=== PATIENT | male | born 1945 | race Caucasian/White ===

== ENCOUNTER → 2016-09-04 | Outpatient (CLI) | payer OTHER ==
[~2016-09-04] MED LIST: AMOXICOT500 MG PO; ASPIRIN CHILDRE81 MG; BACTRIM DS 8001 TA1 PO; CHANTIX1 M1 PO; CHOLESTEROL MED; CLARITIN10 MG PO; DAYPRO600 M1 PO; FLONASE 0.05% 121 EA NAS; GUAIFENESIN200 MG PO; LEVAQUIN750 M1 PO; LISINOPRIL10 MG PO; MULTI VITAMINS1 TAB PO; Meclizine25 MG PO; NORVASC5 MG PO; PRILOSEC20 MG PO; SIMVASTATIN20 MG PO; SIMVASTATIN40 MG PO; SKELAXIN800 MG PO; VIAGRA100 MG PO; VICODIN ES 7501 TAB PO
== END | disposition home or self-care (01) ==
LOC: US 01:29
DX: C92.90 Myeloid leukemia, unspecified, not having achieved remission (principal)

== ENCOUNTER → 2016-11-06 | Outpatient (CLI) | payer OTHER ==
[2016-11-06 09:47] LABS: HEMATOCRIT 41.7 % (42.0-52.0); HEMOGLOBIN 14.3 g/dl (14.0-18.0); MEAN CELL VOLUME 88.9 fl (80.0-94.0); MEAN CORPUSCULAR HGB 30.5 pg (27.0-31.0); MEAN CORPUSCULAR HGB CONC 34.3 g/dl (33.0-37.0); MEAN PLATELET VOLUME 9.2 fl (9.6-12.3); PLATELET COUNT AUTOMATED 243 10*3/uL (130-400); RED BLOOD COUNT 4.69 10*6/uL (4.50-5.90); RED CELL DISTRI WIDTH 17.4 % (0-14.5); WHITE BLOOD COUNT 9.2 10*3/uL (4.8-10.8)
[2016-11-06 10:13] LABS: LYMPHOCYTE # 7.4 10*3/uL (1.3-4.4); MONOCYTE # 0.5 10*3/uL (0.1-1.0); NEUTROPHIL # 1.4 10*3/uL (2.3-7.9); NEUTROPHILS 15 % (47-73); PLATELET SUFFICIENCY NORMAL (NORMAL); TOTAL CELLS COUNTED 100 #CELLS
== END | disposition home or self-care (01) ==
LOC: LAB 02:01
PROVIDERS: Internal Medicine Hematology & Oncology
DX: C91.Z2 Other lymphoid leukemia, in relapse (principal); D70.8 Other neutropenia

== ENCOUNTER → 2016-12-01 | Outpatient (CLI) | payer OTHER ==
[2016-12-01 08:10] LABS: HEMATOCRIT 39.4 % (42.0-52.0); HEMOGLOBIN 13.4 g/dl (14.0-18.0); MEAN CELL VOLUME 87.8 fl (80.0-94.0); MEAN CORPUSCULAR HGB 29.8 pg (27.0-31.0); MEAN PLATELET VOLUME 9.4 fl (9.6-12.3); PLATELET COUNT AUTOMATED 236 10*3/uL (130-400); RED BLOOD COUNT 4.49 10*6/uL (4.50-5.90); RED CELL DISTRI WIDTH 17.6 % (0-14.5); WHITE BLOOD COUNT 8.9 10*3/uL (4.8-10.8)
[2016-12-01 08:34] LABS: LYMPHOCYTE # 7.8 10*3/uL (1.3-4.4); MONOCYTE # 0.3 10*3/uL (0.1-1.0); NEUTROPHIL # 0.8 10*3/uL (2.3-7.9); NEUTROPHILS 9 % (47-73); PLATELET SUFFICIENCY NORMAL (NORMAL); TOTAL CELLS COUNTED 100 #CELLS
== END | disposition home or self-care (01) ==
LOC: LAB 07:36
PROVIDERS: Internal Medicine Hematology & Oncology
DX: C91.Z2 Other lymphoid leukemia, in relapse (principal); D70.8 Other neutropenia

== ENCOUNTER 2016-12-10 11:28 | Emergency (ER) | payer OTHER ==
[~2016-12-10] VITALS: Ht 177.8 cm; Wt 92.1 kg
[2016-12-10] MEDS ORDERED: PREDNISONE10 MG PO (11:48)
[2016-12-10] MEDS ORDERED: CIPROFLOXACIN500 M4 PO (11:48)
[2016-12-10] MEDS ORDERED: NATURE'S BLEND F1 MG PO (11:49)
[2016-12-10] MEDS ORDERED: METHOTREXATE S2.5 M1 PO (11:49)
[2016-12-10 12:21] LABS: HEMATOCRIT 41.2 % (42.0-52.0); HEMOGLOBIN 14.1 g/dl (14.0-18.0); MEAN CELL VOLUME 88.4 fl (80.0-94.0); MEAN CORPUSCULAR HGB 30.3 pg (27.0-31.0); MEAN CORPUSCULAR HGB CONC 34.2 g/dl (33.0-37.0); MEAN PLATELET VOLUME 9.4 fl (9.6-12.3); NUCLEATED RED BLOOD CELL 0.2 % (0.0-0.0); PLATELET COUNT AUTOMATED 206 10*3/uL (130-400); RED BLOOD COUNT 4.66 10*6/uL (4.50-5.90); RED CELL DISTRI WIDTH 17.2 % (0-14.5); WHITE BLOOD COUNT 13.5 10*3/uL (4.8-10.8)
[2016-12-10 12:47] LABS: ATYPICAL LYMPHS 1 % (0-0); LYMPHOCYTE # 12.4 10*3/uL (1.3-4.4); MONOCYTE # 0.5 10*3/uL (0.1-1.0); NEUTROPHIL # 0.5 10*3/uL (2.3-7.9); NEUTROPHILS 4 % (47-73); PLATELET SUFFICIENCY NORMAL (NORMAL); TOTAL CELLS COUNTED 100 #CELLS
[2016-12-10 14:08] LABS: BILIRUBIN 1+ (NEGATIVE); BLOOD NEGATIVE (NEGATIVE); CLARITY CLEAR (CLEAR); COLOR YELLOW (YELLOW); GLUCOSE NEGATIVE (NEGATIVE); KETONE 1+ (NEGATIVE); LEUKO ESTERASE NEGATIVE (NEGATIVE); NITRITE NEGATIVE (NEGATIVE); PH 6.5 (5.0-9.0); PROTEIN 2+ (NEGATIVE); SPECIFIC GRAVITY 1.025 (1.005-1.030)
[2016-12-10] MEDS ORDERED: TESSALON PERLE100 M1 PO (14:16)
[2016-12-10] MEDS ORDERED: LEVOFLOXACIN500 MG PO (14:16)
[2016-12-10 14:22] LABS: BACTERIA 1+; MUCOUS 3+; URINE REFLEX COMMENT YES (NO)
[2016-12-10 14:33] LABS: BUN 11 mg/dl (7-24); CARBON DIOXIDE 25 mmol/L (21-32); CHLORIDE 95 mmol/L (98-107); EST GLOM FILT AFRICAN AMERICAN > 60 ml/min; GLUCOSE 100 mg/dL (65-99); POTASSIUM 5.2 mmol/L (3.5-5.1); SODIUM 129 mmol/L (136-145)
== END 2016-12-10 14:28 | disposition home or self-care (01) ==
LOC: ED 11:28
PROVIDERS: Emergency Medicine; Family Medicine
DX: J40 Bronchitis, not specified as acute or chronic (principal); J44.9 Chronic obstructive pulmonary disease, unspecified; K21.9 Gastro-esophageal reflux disease without esophagitis; E78.5 Hyperlipidemia, unspecified; F17.210 Nicotine dependence, cigarettes, uncomplicated; Z79.899 Other long term (current) drug therapy

== ENCOUNTER 2017-01-26 00:33 | Emergency (ER) | payer OTHER ==
[~2017-01-26] VITALS: Ht 177.8 cm; Wt 90.7 kg
[~2017-01-26 00:33] MED LIST changes: +CIPROFLOXACIN500 M4 PO; +LEVOFLOXACIN500 MG PO; +METHOTREXATE S2.5 M1 PO; +NATURE'S BLEND F1 MG PO; +PREDNISONE10 MG PO; +TESSALON PERLE100 M1 PO
[2017-01-26] MEDS ORDERED: PREDNISONE10 M1 PO (00:46)
[2017-01-26] MEDS ORDERED: HYDROCODONE BIT1 T11 PO (01:16)
[2017-01-26] MEDS ORDERED: SINGULAIR10 M1 PO (18:01)
[2017-01-26] MEDS ORDERED: ZYRTEC10 MG PO (18:11)
== END 2017-01-26 02:05 | disposition home or self-care (01) ==
LOC: ED 00:33
DX: S82.101A Unspecified fracture of upper end of right tibia, initial encounter for closed fracture (principal); F17.210 Nicotine dependence, cigarettes, uncomplicated; Z79.82 Long term (current) use of aspirin; X58.XXXA Exposure to other specified factors, initial encounter; Y93.89 Activity, other specified; Y92.9 Unspecified place or not applicable; Y99.9 Unspecified external cause status

== ENCOUNTER 2017-01-26 16:45 | Inpatient (IN) | payer OTHER ==
[~2017-01-26] VITALS: Ht 180.3 cm; Wt 89.4 kg
--- NOTE | ~2017-01-26 | PR ---
[place], [place] PROGRESS NOTE NAME: ANA PARKS UNIT #: [id number] ROOM: 420 DOCTOR: CESAR HILL MD BIRTHDATE: [birth year] DOS: 01/29/2017 SUBJECTIVE: The patient had a right tibial plateau fracture after he fell on 01/26/2017 at [facility]. He has pain in the right knee and is unable to bear weight. The patient was advised [facility]. For that, the patient had to come to the hospital for at least 72 hours. He was seen by Khushi Byers and she has recommended conservative treatment at this point. PT, OT was ordered. As per her, he will do well in rehab for nondisplaced fracture of the right tibial plateau. OBJECTIVE: VITAL SIGNS: Blood pressure is 156/90, pulse is 73, respiratory rate 20, temperature 97.4. CHEST: Clear to auscultation bilaterally. HEART: S1, S2. Regular rate. No murmur, gallop or rub. ABDOMEN: Soft, nontender. EXTREMITIES: No cyanosis, clubbing or edema. The patient has a bandage on the right knee. ASSESSMENT: 1. Nondisplaced right tibial fracture. 2. CLL. 3. Chronic obstructive pulmonary disease. 4. Hyperlipidemia. 5. Gastroesophageal reflux disease. 6. Erectile dysfunction. 7. History of protein-calorie malnutrition. PLAN OF CARE: 1. We will continue all home medications. 2. The patient will be discharged to [facility] for rehab and physical therapy as soon as insurance accepts the transfer to [facility]. We will follow patient in the morning. [place], [place] PROGRESS NOTE NAME: ANA PARKS UNIT #: [id number] ROOM: 420 DOCTOR: CESAR HILL MD BIRTHDATE: [birth year] CESAR HILL MD CM:PNTRANS [id number] CESAR HILL MD 01/29/17 2325 interface
--- NOTE | ~2017-01-26 | WRIGHTHP ---
[place], [place] PATIENT HISTORY AND PHYSICAL EXAM NAME: ANA PARKS [facility] #: [id number] UNIT #: [id number] ROOM: 420 DOCTOR: STACEY TERRELL MD BIRTHDATE: [birth year] DOS: 01/27/2017 HISTORY OF PRESENT ILLNESS: The patient has been admitted to the hospital with fracture of the right knee. The patient came to Emergency Department one day before as he had sustained injury when he fell down and sustained fracture of the right knee and was given knee brace and sent home, but unfortunately the patient lives alone. He cannot take care of himself. He cannot go to bathroom. He cannot do anything and there is no help available for him. He came back again to the Emergency Department from where he has been admitted to hospital and will be seen by orthopedic surgeon in that regard and the patient will need possible placement in the [facility] where he can go for physical therapy and further recovery. The patient has been seen by Dr. Noble in the past. ALLERGIES: There is no known allergy. MEDICATIONS: The patient is taking following medications at present: Multivitamin 1 tablet daily, meclizine 25 mg twice daily, ciprofloxacin 500 mg daily, methotrexate 5 tablet once a week, folic acid 1 mg daily, Singulair 10 mg daily, Zyrtec 10 mg daily. PAST SURGICAL HISTORY: No past history of surgery. Previous hospitalization was for hemorrhoids. SOCIAL HISTORY: The patient has history of smoking 1 pack per day, drinks occasionally. No recreational drugs. FAMILY HISTORY: Diabetes, coronary heart disease and hypertension. PHYSICAL EXAMINATION: GENERAL: Normal, does not seem to be in any distress, having splint on the right leg to stabilize the knee. HEENT: Unremarkable. No glandular enlargement. NECK: Trachea is center. Neck veins are not distended. Carotid pulsation normal. HEART: Regular. No murmur. LUNGS: Clear. No creps or rhonchi. ABDOMEN: Soft. VITAL SIGNS: His temperature 97.7, pulse rate is 104, blood pressure 141/100. DIAGNOSTIC STUDIES: X-ray shows nondisplaced fracture of the right tibial plateau. DIAGNOSES: Fracture of the right leg with history of falling down, dizziness, unable to take care of himself, history of hypertension, vertigo, allergic rhinitis and arthritis. PLAN OF TREATMENT: The patient will be admitted to hospital. We will try to place in the [facility] and orthopedic consultation is called. [place], [place] PATIENT HISTORY AND PHYSICAL EXAM NAME: ANA PARKS UNIT #: [id number] ROOM: 420 DOCTOR: STACEY TERRELL MD BIRTHDATE: [birth year] STACEY TERRELL MD CM:HISPHYS:PATIENT HISTORY AND PHYSICAL EXAMINATION [id number] STACEY TERRELL MD 01/28/17 0513 interface
--- NOTE | ~2017-01-26 | PR ---
[place], [place] PROGRESS NOTE NAME: ANA PARKS UNIT #: [id number] ROOM: 420 DOCTOR: STACEY TERRELL MD BIRTHDATE: [birth year] DOS: SUBJECTIVE: The patient has been admitted to the hospital with right knee fracture. He is stable. He is having some pain in the knee, but there is no other problem and he is waiting to be placed in the [facility]. OBJECTIVE: VITAL SIGNS: His blood pressure is 110/80, pulse 77, respirations 20, temperature 98.3. CHEST: Clear. HEART: Regular. ABDOMEN: Soft. STACEY TERRELL MD CM:PNLUCIEN [id number] STACEY TERRELL MD 01/28/172128 interface
[~2017-01-26 16:45] MED LIST changes: +HYDROCODONE BIT1 T11 PO; +PREDNISONE10 M1 PO
[2017-01-26 17:09] VITALS: BP 141/100
[2017-01-26] MEDS ORDERED: SINGULAIR10 M1 PO (18:01)
[2017-01-26] MEDS ORDERED: ZYRTEC10 MG PO (18:11)
[2017-01-26 20:00] VITALS: BP 132/83
[2017-01-27] VITALS: BP 142/89
[2017-01-27 08:00] VITALS: BP 142/56
[2017-01-27 12:00] VITALS: BP 135/89
[2017-01-27 16:00] VITALS: BP 150/88
[2017-01-27 20:00] VITALS: BP 150/88
[2017-01-28] VITALS: BP 147/79
[2017-01-28 08:00] VITALS: BP 110/90
[2017-01-28 12:00] VITALS: BP 117/78
[2017-01-28 16:00] VITALS: BP 148/98
[2017-01-28 20:00] VITALS: BP 144/85
[2017-01-29] VITALS: BP 120/69
[2017-01-29 08:00] VITALS: BP 133/84
[2017-01-29 12:00] VITALS: BP 156/90
[2017-01-29 16:48] VITALS: BP 152/93
[2017-01-29 20:00] VITALS: BP 146/81
[2017-01-30] VITALS: BP 158/77
[2017-01-30 08:00] VITALS: BP 138/82
[2017-01-30 12:00] VITALS: BP 136/78
== END 2017-01-30 13:02 | disposition other institution (70) | DRG 563 ==
LOC: ED 16:45 → 4E 17:34 → EDHOLD 17:34 → 4E 17:40
DX: S82.144A Nondisplaced bicondylar fracture of right tibia, initial encounter for closed fracture (principal); C91.10 Chronic lymphocytic leukemia of B-cell type not having achieved remission; J44.9 Chronic obstructive pulmonary disease, unspecified; W18.39XA Other fall on same level, initial encounter; Y93.89 Activity, other specified; Y92.89 Other specified places as the place of occurrence of the external cause; F17.210 Nicotine dependence, cigarettes, uncomplicated; Z82.49 Family history of ischemic heart disease and other diseases of the circulatory system; Z83.3 Family history of diabetes mellitus; E78.5 Hyperlipidemia, unspecified; K21.9 Gastro-esophageal reflux disease without esophagitis; N52.9 Male erectile dysfunction, unspecified; Z87.01 Personal history of pneumonia (recurrent)

== ENCOUNTER → 2017-02-09 | Outpatient (CLI) | payer OTHER ==
[~2017-02-09] MED LIST changes: +SINGULAIR10 M1 PO; +ZYRTEC10 MG PO
== END | disposition home or self-care (01) ==
LOC: ORTHO 01:58
DX: S82.101D Unspecified fracture of upper end of right tibia, subsequent encounter for closed fracture with routine healing (principal); M25.461 Effusion, right knee; X58.XXXD Exposure to other specified factors, subsequent encounter

== ENCOUNTER → 2017-02-16 | Outpatient (CLI) | payer OTHER ==
[2017-02-16 09:45] VITALS: BP 131/81
== END | disposition home or self-care (01) ==
LOC: INJECTION 09:36
DX: C91.Z2 Other lymphoid leukemia, in relapse (principal)

== ENCOUNTER → 2017-02-23 | Outpatient (CLI) | payer OTHER ==
[2017-02-23 09:52] VITALS: BP 129/74
== END | disposition home or self-care (01) ==
LOC: INJECTION 09:17
DX: C91.Z2 Other lymphoid leukemia, in relapse (principal)

== ENCOUNTER → 2017-02-27 | Outpatient (CLI) | payer OTHER ==
[2017-02-27 09:44] LABS: HEMATOCRIT 38.8 % (42.0-52.0); HEMOGLOBIN 13.2 g/dl (14.0-18.0); MEAN CELL VOLUME 91.3 fl (80.0-94.0); MEAN CORPUSCULAR HGB 31.1 pg (27.0-31.0); MEAN PLATELET VOLUME 9.5 fl (9.6-12.3); PLATELET COUNT AUTOMATED 175 10*3/uL (130-400); RED BLOOD COUNT 4.25 10*6/uL (4.50-5.90); WHITE BLOOD COUNT 6.2 10*3/uL (4.8-10.8)
[2017-02-27 10:08] LABS: LYMPHOCYTE # 4.9 10*3/uL (1.3-4.4); MONOCYTE # 0.1 10*3/uL (0.1-1.0); NEUTROPHIL # 1.2 10*3/uL (2.3-7.9); NEUTROPHILS 19 % (47-73); TOTAL CELLS COUNTED 100 #CELLS
[2017-02-27 10:09] LABS: PLATELET SUFFICIENCY NORMAL (NORMAL)
== END | disposition home or self-care (01) ==
LOC: LAB 09:20
PROVIDERS: Internal Medicine Hematology & Oncology
DX: C91.Z2 Other lymphoid leukemia, in relapse (principal)

== ENCOUNTER → 2017-03-09 | Outpatient (CLI) | payer OTHER | END | disposition home or self-care (01) | LOC: ORTHO 03:00 | DX: S82.001D Unspecified fracture of right patella, subsequent encounter for closed fracture with routine healing (principal); X58.XXXD Exposure to other specified factors, subsequent encounter ==

== ENCOUNTER → 2017-03-20 | Outpatient (CLI) | payer OTHER ==
[2017-03-20 09:49] LABS: HEMATOCRIT 41.5 % (42.0-52.0); HEMOGLOBIN 14.1 g/dl (14.0-18.0); MEAN CELL VOLUME 91.8 fl (80.0-94.0); MEAN CORPUSCULAR HGB 31.2 pg (27.0-31.0); MEAN PLATELET VOLUME 9.4 fl (9.6-12.3); PLATELET COUNT AUTOMATED 230 10*3/uL (130-400); RED BLOOD COUNT 4.52 10*6/uL (4.50-5.90); RED CELL DISTRI WIDTH 17.8 % (0-14.5); WHITE BLOOD COUNT 5.3 10*3/uL (4.8-10.8)
[2017-03-20 10:49] LABS: ATYPICAL LYMPHS 1 % (0-0); EOSINOPHIL # 0.1 10*3/uL (0-0.4); EOSINOPHILS 1 % (1-4); LYMPHOCYTE # 3.9 10*3/uL (1.3-4.4); MONOCYTE # 0.5 10*3/uL (0.1-1.0); NEUTROPHIL # 0.9 10*3/uL (2.3-7.9); NEUTROPHILS 17 % (47-73); PLATELET SUFFICIENCY NORMAL (NORMAL); TOTAL CELLS COUNTED 100 #CELLS
== END | disposition home or self-care (01) ==
LOC: LAB 09:08
PROVIDERS: Internal Medicine Hematology & Oncology
DX: C91.Z2 Other lymphoid leukemia, in relapse (principal)

== ENCOUNTER → 2017-04-03 | Outpatient (CLI) | payer OTHER ==
[2017-04-03 09:29] LABS: HEMOGLOBIN 13.7 g/dl (14.0-18.0); MEAN CELL VOLUME 91.7 fl (80.0-94.0); MEAN CORPUSCULAR HGB 30.6 pg (27.0-31.0); MEAN CORPUSCULAR HGB CONC 33.4 g/dl (33.0-37.0); MEAN PLATELET VOLUME 9.7 fl (9.6-12.3); NUCLEATED RED BLOOD CELL 0.3 % (0.0-0.0); PLATELET COUNT AUTOMATED 232 10*3/uL (130-400); RED BLOOD COUNT 4.47 10*6/uL (4.50-5.90); RED CELL DISTRI WIDTH 17.3 % (0-14.5)
[2017-04-03 10:08] LABS: LYMPHOCYTE # 6.1 10*3/uL (1.3-4.4); MONOCYTE # 0.4 10*3/uL (0.1-1.0); NEUTROPHIL # 0.6 10*3/uL (2.3-7.9); NEUTROPHILS 8 % (47-73); PLATELET SUFFICIENCY NORMAL (NORMAL); TOTAL CELLS COUNTED 100 #CELLS
== END | disposition home or self-care (01) ==
LOC: LAB 08:56
PROVIDERS: Internal Medicine Hematology & Oncology
DX: C91.Z2 Other lymphoid leukemia, in relapse (principal)

== ENCOUNTER → 2017-04-11 | Outpatient (CLI) | payer OTHER | END | disposition home or self-care (01) | LOC: ORTHO 03:24 | DX: S82.101D Unspecified fracture of upper end of right tibia, subsequent encounter for closed fracture with routine healing (principal); X58.XXXD Exposure to other specified factors, subsequent encounter ==

== ENCOUNTER → 2017-04-17 | Outpatient (CLI) | payer OTHER ==
[~2017-04-17] MED LIST changes: +ASPIRIN81 M1 PO; +OMEPRAZOLE20 M2 PO
[2017-04-17 08:47] LABS: HEMOGLOBIN 14.8 g/dl (14.0-18.0); MEAN CELL VOLUME 91.3 fl (80.0-94.0); MEAN CORPUSCULAR HGB 30.7 pg (27.0-31.0); MEAN CORPUSCULAR HGB CONC 33.6 g/dl (33.0-37.0); MEAN PLATELET VOLUME 9.7 fl (9.6-12.3); PLATELET COUNT AUTOMATED 223 10*3/uL (130-400); RED BLOOD COUNT 4.82 10*6/uL (4.50-5.90); WHITE BLOOD COUNT 7.4 10*3/uL (4.8-10.8)
[2017-04-17 09:06] LABS: TOTAL CELLS COUNTED 100 #CELLS
[2017-04-17 09:07] LABS: PLATELET SUFFICIENCY NORMAL (NORMAL)
[2017-04-17 09:15] VITALS: BP 195/87
== END | disposition home or self-care (01) ==
LOC: LAB 08:34
PROVIDERS: Internal Medicine Hematology & Oncology
DX: C91.Z2 Other lymphoid leukemia, in relapse (principal); D70.9 Neutropenia, unspecified

== ENCOUNTER → 2017-05-01 | Outpatient (CLI) | payer OTHER ==
[2017-05-01 08:41] LABS: HEMATOCRIT 44.5 % (42.0-52.0); HEMOGLOBIN 15.2 g/dl (14.0-18.0); MEAN CELL VOLUME 91.2 fl (80.0-94.0); MEAN CORPUSCULAR HGB 31.1 pg (27.0-31.0); MEAN CORPUSCULAR HGB CONC 34.2 g/dl (33.0-37.0); MEAN PLATELET VOLUME 9.5 fl (9.6-12.3); PLATELET COUNT AUTOMATED 237 10*3/uL (130-400); RED BLOOD COUNT 4.88 10*6/uL (4.50-5.90); RED CELL DISTRI WIDTH 16.7 % (0-14.5); WHITE BLOOD COUNT 7.2 10*3/uL (4.8-10.8)
[2017-05-01 09:00] LABS: PLATELET SUFFICIENCY NORMAL (NORMAL); ROULEAUX SLIGHT; TOTAL CELLS COUNTED 100 #CELLS
== END | disposition home or self-care (01) ==
LOC: INJECTION 08:25
PROVIDERS: Internal Medicine Hematology & Oncology
DX: C91.Z2 Other lymphoid leukemia, in relapse (principal); D70.9 Neutropenia, unspecified

== ENCOUNTER → 2017-05-22 | Outpatient (CLI) | payer OTHER ==
[2017-05-22 08:47] LABS: HEMATOCRIT 44.1 % (42.0-52.0); HEMOGLOBIN 14.7 g/dl (14.0-18.0); MEAN CELL VOLUME 91.3 fl (80.0-94.0); MEAN CORPUSCULAR HGB 30.4 pg (27.0-31.0); MEAN CORPUSCULAR HGB CONC 33.3 g/dl (33.0-37.0); MEAN PLATELET VOLUME 9.6 fl (9.6-12.3); PLATELET COUNT AUTOMATED 227 10*3/uL (130-400); RED BLOOD COUNT 4.83 10*6/uL (4.50-5.90); RED CELL DISTRI WIDTH 16.5 % (0-14.5); WHITE BLOOD COUNT 6.8 10*3/uL (4.8-10.8)
[2017-05-22 09:06] LABS: PLATELET SUFFICIENCY NORMAL (NORMAL); ROULEAUX SLIGHT; TOTAL CELLS COUNTED 100 #CELLS
[2017-05-22 09:15] VITALS: BP 156/108
[2017-05-22 09:17] LABS: ALBUMIN 3.2 gm/dl (3.1-4.5); BILIRUBIN, DIRECT 0.1 mg/dL (0.0-0.2); TOTAL PROTEIN 7.5 gm/dL (6.4-8.2)
== END | disposition home or self-care (01) ==
LOC: LAB 08:29
PROVIDERS: Internal Medicine Hematology & Oncology
DX: C91.Z2 Other lymphoid leukemia, in relapse (principal)

== ENCOUNTER → 2017-06-04 | Outpatient (CLI) | payer OTHER ==
[2017-06-04 08:58] LABS: HEMATOCRIT 42.7 % (42.0-52.0); HEMOGLOBIN 14.5 g/dl (14.0-18.0); MEAN CELL VOLUME 89.5 fl (80.0-94.0); MEAN CORPUSCULAR HGB 30.4 pg (27.0-31.0); MEAN PLATELET VOLUME 9.3 fl (9.6-12.3); PLATELET COUNT AUTOMATED 227 10*3/uL (130-400); RED BLOOD COUNT 4.77 10*6/uL (4.50-5.90); RED CELL DISTRI WIDTH 16.7 % (0-14.5); WHITE BLOOD COUNT 11.6 10*3/uL (4.8-10.8)
[2017-06-04 09:18] LABS: TOTAL CELLS COUNTED 100 #CELLS
[2017-06-04 09:19] LABS: PLATELET SUFFICIENCY NORMAL (NORMAL)
[2017-06-04 09:25] VITALS: BP 156/93
== END | disposition home or self-care (01) ==
LOC: LAB 08:44
PROVIDERS: Internal Medicine Hematology & Oncology
DX: C91.Z2 Other lymphoid leukemia, in relapse (principal)

== ENCOUNTER → 2017-06-18 | Outpatient (CLI) | payer OTHER ==
[2017-06-18 07:28] LABS: HEMATOCRIT 44.3 % (42.0-52.0); MEAN CELL VOLUME 88.8 fl (80.0-94.0); MEAN CORPUSCULAR HGB 30.1 pg (27.0-31.0); MEAN CORPUSCULAR HGB CONC 33.9 g/dl (33.0-37.0); MEAN PLATELET VOLUME 9.3 fl (9.6-12.3); PLATELET COUNT AUTOMATED 282 10*3/uL (130-400); RED BLOOD COUNT 4.99 10*6/uL (4.50-5.90); RED CELL DISTRI WIDTH 16.9 % (0-14.5); WHITE BLOOD COUNT 8.5 10*3/uL (4.8-10.8)
[2017-06-18 07:46] LABS: PLATELET SUFFICIENCY NORMAL (NORMAL); TOTAL CELLS COUNTED 100 #CELLS
== END | disposition home or self-care (01) ==
LOC: LAB 07:15
PROVIDERS: Internal Medicine Hematology & Oncology
DX: C91.Z2 Other lymphoid leukemia, in relapse (principal)

== ENCOUNTER → 2017-07-09 | Outpatient (CLI) | payer OTHER ==
[2017-07-09 08:31] LABS: HEMATOCRIT 44.9 % (42.0-52.0); MEAN CELL VOLUME 90.3 fl (80.0-94.0); MEAN CORPUSCULAR HGB 30.2 pg (27.0-31.0); MEAN CORPUSCULAR HGB CONC 33.4 g/dl (33.0-37.0); MEAN PLATELET VOLUME 9.9 fl (9.6-12.3); NUCLEATED RED BLOOD CELL 0.5 % (0.0-0.0); PLATELET COUNT AUTOMATED 231 10*3/uL (130-400); RED BLOOD COUNT 4.97 10*6/uL (4.50-5.90); RED CELL DISTRI WIDTH 17.4 % (0-14.5); WHITE BLOOD COUNT 7.3 10*3/uL (4.8-10.8)
[2017-07-09 08:48] LABS: BASOPHILS 2 % (0-1); PLATELET SUFFICIENCY NORMAL (NORMAL); TOTAL CELLS COUNTED 100 #CELLS
== END | disposition home or self-care (01) ==
LOC: LAB 07:56
PROVIDERS: Internal Medicine Hematology & Oncology
DX: C91.Z2 Other lymphoid leukemia, in relapse (principal); D70.9 Neutropenia, unspecified

== ENCOUNTER → 2017-07-23 | Outpatient (CLI) | payer OTHER ==
[2017-07-23 08:17] LABS: HEMATOCRIT 42.3 % (42.0-52.0); HEMOGLOBIN 14.3 g/dl (14.0-18.0); MEAN CELL VOLUME 88.5 fl (80.0-94.0); MEAN CORPUSCULAR HGB 29.9 pg (27.0-31.0); MEAN CORPUSCULAR HGB CONC 33.8 g/dl (33.0-37.0); MEAN PLATELET VOLUME 9.5 fl (9.6-12.3); PLATELET COUNT AUTOMATED 237 10*3/uL (130-400); RED BLOOD COUNT 4.78 10*6/uL (4.50-5.90); RED CELL DISTRI WIDTH 17.2 % (0-14.5); WHITE BLOOD COUNT 4.1 10*3/uL (4.8-10.8)
[2017-07-23 08:35] LABS: ATYPICAL LYMPHS 1 % (0-0); BASOPHILS 1 % (0-1); PLATELET SUFFICIENCY NORMAL (NORMAL); TOTAL CELLS COUNTED 100 #CELLS
== END | disposition home or self-care (01) ==
LOC: LAB 07:54
PROVIDERS: Internal Medicine Hematology & Oncology
DX: C91.Z2 Other lymphoid leukemia, in relapse (principal)

== ENCOUNTER → 2017-08-21 | Outpatient (CLI) | payer OTHER ==
[2017-08-21 08:45] LABS: BASO % 0.5 % (0.0-1.0); EOS % 0.3 % (1.0-4.0); HEMATOCRIT 46.5 % (42.0-52.0); HEMOGLOBIN 15.6 g/dl (14.0-18.0); LYMPH # 3.5 10*3/uL (1.3-4.4); LYMPH % 57.8 % (27.0-41.0); MEAN CELL VOLUME 90.3 fl (80.0-94.0); MEAN CORPUSCULAR HGB 30.3 pg (27.0-31.0); MEAN CORPUSCULAR HGB CONC 33.5 g/dl (33.0-37.0); MEAN PLATELET VOLUME 9.8 fl (9.6-12.3); MONO # 0.7 10*3/uL (0.1-1.0); NEUT # 1.8 10*3/uL (2.3-7.9); NEUT % 30.1 % (47.0-73.0); PLATELET COUNT AUTOMATED 246 10*3/uL (130-400); RED BLOOD COUNT 5.15 10*6/uL (4.50-5.90); WHITE BLOOD COUNT 6.1 10*3/uL (4.8-10.8)
== END | disposition home or self-care (01) ==
LOC: LAB 08:22
PROVIDERS: Internal Medicine Hematology & Oncology
DX: C91.Z2 Other lymphoid leukemia, in relapse (principal)

== ENCOUNTER → 2017-09-03 | Outpatient (CLI) | payer OTHER ==
[2017-09-03 08:37] LABS: BASO % 0.4 % (0.0-1.0); EOS % 0.4 % (1.0-4.0); HEMATOCRIT 42.6 % (42.0-52.0); HEMOGLOBIN 14.3 g/dl (14.0-18.0); LYMPH % 55.6 % (27.0-41.0); MEAN CELL VOLUME 89.5 fl (80.0-94.0); MEAN CORPUSCULAR HGB CONC 33.6 g/dl (33.0-37.0); MEAN PLATELET VOLUME 9.7 fl (9.6-12.3); MONO # 0.5 10*3/uL (0.1-1.0); MONO % 8.3 % (3.0-9.0); NEUT # 1.9 10*3/uL (2.3-7.9); NEUT % 34.9 % (47.0-73.0); PLATELET COUNT AUTOMATED 233 10*3/uL (130-400); RED BLOOD COUNT 4.76 10*6/uL (4.50-5.90); RED CELL DISTRI WIDTH 16.9 % (0-14.5); WHITE BLOOD COUNT 5.4 10*3/uL (4.8-10.8)
== END | disposition home or self-care (01) ==
LOC: LAB 08:20
PROVIDERS: Internal Medicine Hematology & Oncology
DX: C91.Z2 Other lymphoid leukemia, in relapse (principal)

== ENCOUNTER 2017-09-22 06:07 | Emergency (ER) | payer OTHER ==
[~2017-09-22] VITALS: Ht 177.8 cm; Wt 93.9 kg
[2017-09-22 07:05] LABS: HEMATOCRIT 41.5 % (42.0-52.0); HEMOGLOBIN 13.9 g/dl (14.0-18.0); MEAN CELL VOLUME 88.1 fl (80.0-94.0); MEAN CORPUSCULAR HGB 29.5 pg (27.0-31.0); MEAN CORPUSCULAR HGB CONC 33.5 g/dl (33.0-37.0); MEAN PLATELET VOLUME 9.9 fl (9.6-12.3); PLATELET COUNT AUTOMATED 198 10*3/uL (130-400); RED BLOOD COUNT 4.71 10*6/uL (4.50-5.90); RED CELL DISTRI WIDTH 16.8 % (0-14.5); WHITE BLOOD COUNT 4.8 10*3/uL (4.8-10.8)
[2017-09-22 07:32] LABS: ATYPICAL LYMPHS 1 % (0-0); PLATELET SUFFICIENCY NORMAL (NORMAL); TOTAL CELLS COUNTED 100 #CELLS
[2017-09-22 07:34] LABS: ALBUMIN 3.1 gm/dl (3.1-4.5); ALKALINE PHOSPHATASE 99 U/L (45-117); BUN 13 mg/dl (7-24); CHLORIDE 100 mmol/L (98-107); CREATININE 1.06 mg/dL (0.70-1.30); POTASSIUM 3.7 mmol/L (3.5-5.1); SGOT/AST 15 IU/L (3-35); SGPT/ALT 26 U/L (12-78); SODIUM 134 mmol/L (136-145); TOTAL PROTEIN 6.9 gm/dL (6.4-8.2)
[2017-09-22 07:38] LABS: TROPONIN I < 0.015 ng/ml (<0.045)
[2017-09-22 08:41] LABS: BILIRUBIN NEGATIVE (NEGATIVE); BLOOD 3+ (NEGATIVE); CLARITY SL CLOUDY (CLEAR); COLOR YELLOW (YELLOW); GLUCOSE NEGATIVE (NEGATIVE); KETONE NEGATIVE (NEGATIVE); LEUKO ESTERASE NEGATIVE (NEGATIVE); NITRITE NEGATIVE (NEGATIVE); SPECIFIC GRAVITY 1.015 (1.005-1.030); UROBILINOGEN 0.2 E.U./dl (0.2-1.0)
[2017-09-22 08:48] LABS: BACTERIA TRACE; RBC TNTC rbc/hpf (0-2)
== END 2017-09-22 10:57 | disposition short-term general hospital (02) ==
LOC: ED 06:07
PROVIDERS: Emergency Medicine; Emergency Medicine Emergency Medical Services
DX: G91.2 (Idiopathic) normal pressure hydrocephalus (principal); R42 Dizziness and giddiness; H53.2 Diplopia; R26.89 Other abnormalities of gait and mobility; H49.02 Third [oculomotor] nerve palsy, left eye; R32 Unspecified urinary incontinence; F17.210 Nicotine dependence, cigarettes, uncomplicated; I10 Essential (primary) hypertension; J44.9 Chronic obstructive pulmonary disease, unspecified; K21.9 Gastro-esophageal reflux disease without esophagitis; E78.5 Hyperlipidemia, unspecified; Z79.82 Long term (current) use of aspirin; Z79.899 Other long term (current) drug therapy

== ENCOUNTER → 2017-10-08 | Outpatient (CLI) | payer OTHER | END | disposition home or self-care (01) | LOC: CT 13:39 | DX: G91.2 (Idiopathic) normal pressure hydrocephalus (principal) ==

== ENCOUNTER → 2017-11-05 | Outpatient (CLI) | payer OTHER ==
[2017-11-05 08:48] LABS: BASO % 0.4 % (0.0-1.0); EOS % 0.4 % (1.0-4.0); HEMOGLOBIN 14.4 g/dl (14.0-18.0); LYMPH # 4.6 10*3/uL (1.3-4.4); LYMPH % 57.8 % (27.0-41.0); MEAN CELL VOLUME 91.5 fl (80.0-94.0); MEAN CORPUSCULAR HGB 29.9 pg (27.0-31.0); MEAN CORPUSCULAR HGB CONC 32.7 g/dl (33.0-37.0); MEAN PLATELET VOLUME 9.8 fl (9.6-12.3); MONO # 0.7 10*3/uL (0.1-1.0); NEUT # 2.6 10*3/uL (2.3-7.9); NEUT % 31.9 % (47.0-73.0); PLATELET COUNT AUTOMATED 232 10*3/uL (130-400); RED BLOOD COUNT 4.81 10*6/uL (4.50-5.90); RED CELL DISTRI WIDTH 17.1 % (0-14.5)
== END | disposition home or self-care (01) ==
LOC: LAB 08:33
PROVIDERS: Internal Medicine Hematology & Oncology
DX: D70.8 Other neutropenia (principal)

== ENCOUNTER → 2017-12-10 | Outpatient (CLI) | payer OTHER ==
[2017-12-10 08:42] LABS: BASO % 0.4 % (0.0-1.0); EOS % 0.4 % (1.0-4.0); HEMOGLOBIN 14.8 g/dl (14.0-18.0); LYMPH # 4.4 10*3/uL (1.3-4.4); MEAN CELL VOLUME 89.8 fl (80.0-94.0); MEAN CORPUSCULAR HGB 30.2 pg (27.0-31.0); MEAN CORPUSCULAR HGB CONC 33.6 g/dl (33.0-37.0); MEAN PLATELET VOLUME 9.7 fl (9.6-12.3); MONO # 0.9 10*3/uL (0.1-1.0); MONO % 11.7 % (3.0-9.0); NEUT # 2.4 10*3/uL (2.3-7.9); NEUT % 30.9 % (47.0-73.0); PLATELET COUNT AUTOMATED 233 10*3/uL (130-400); RED CELL DISTRI WIDTH 17.6 % (0-14.5); WHITE BLOOD COUNT 7.9 10*3/uL (4.8-10.8)
== END | disposition home or self-care (01) ==
LOC: LAB 08:25
PROVIDERS: Internal Medicine Hematology & Oncology
DX: C91.Z2 Other lymphoid leukemia, in relapse (principal)

== ENCOUNTER → 2018-01-18 | Outpatient (CLI) | payer OTHER ==
[2018-01-18 08:42] LABS: HEMATOCRIT 42.3 % (42.0-52.0); HEMOGLOBIN 14.5 g/dl (14.0-18.0); MEAN CELL VOLUME 89.8 fl (80.0-94.0); MEAN CORPUSCULAR HGB 30.8 pg (27.0-31.0); MEAN CORPUSCULAR HGB CONC 34.3 g/dl (33.0-37.0); MEAN PLATELET VOLUME 9.6 fl (9.6-12.3); PLATELET COUNT AUTOMATED 219 10*3/uL (130-400); RED BLOOD COUNT 4.71 10*6/uL (4.50-5.90); RED CELL DISTRI WIDTH 16.8 % (0-14.5); WHITE BLOOD COUNT 5.3 10*3/uL (4.8-10.8)
[2018-01-18 09:01] LABS: PLATELET SUFFICIENCY NORMAL (NORMAL); TOTAL CELLS COUNTED 100 #CELLS
[2018-01-18 09:28] LABS: BUN 10 mg/dl (7-24); CHLORIDE 101 mmol/L (98-107); POTASSIUM 5.5 mmol/L (3.5-5.1); SODIUM 134 mmol/L (136-145)
== END | disposition home or self-care (01) ==
LOC: LAB 08:18
PROVIDERS: Internal Medicine Hematology & Oncology
DX: C91.Z2 Other lymphoid leukemia, in relapse (principal)

== ENCOUNTER → 2018-02-20 | Outpatient (CLI) | payer OTHER | END | disposition home or self-care (01) | LOC: CT 13:39 | DX: G91.2 (Idiopathic) normal pressure hydrocephalus (principal) ==

== ENCOUNTER → 2018-03-01 | Outpatient (CLI) | payer OTHER ==
[2018-03-01 09:28] LABS: HEMATOCRIT 40.1 % (42.0-52.0); HEMOGLOBIN 13.8 g/dl (14.0-18.0); MEAN CELL VOLUME 90.1 fl (80.0-94.0); MEAN CORPUSCULAR HGB CONC 34.4 g/dl (33.0-37.0); PLATELET COUNT AUTOMATED 253 10*3/uL (130-400); RED BLOOD COUNT 4.45 10*6/uL (4.50-5.90); RED CELL DISTRI WIDTH 15.6 % (0-14.5)
[2018-03-01 09:37] LABS: ALBUMIN 3.5 gm/dl (3.1-4.5); ALKALINE PHOSPHATASE 139 U/L (45-117); BUN 15 mg/dl (7-24); CHLORIDE 99 mmol/L (98-107); CREATININE 1.09 mg/dL (0.70-1.30); LDH 125 U/L (87-241); POTASSIUM 4.5 mmol/L (3.5-5.1); SGOT/AST 10 IU/L (3-35); SGPT/ALT 19 U/L (12-78); SODIUM 131 mmol/L (136-145); TOTAL PROTEIN 7.3 gm/dL (6.4-8.2); URIC ACID 4.3 mg/dL (3.5-7.2)
[2018-03-01 10:33] LABS: TOTAL CELLS COUNTED 100 #CELLS
[2018-03-01 10:34] LABS: PLATELET SUFFICIENCY NORMAL (NORMAL)
== END | disposition home or self-care (01) ==
LOC: LAB 08:26
PROVIDERS: Internal Medicine Hematology & Oncology
DX: C84.Z0 Other mature T/NK-cell lymphomas, unspecified site (principal)

== ENCOUNTER → 2018-03-08 | Outpatient (CLI) | payer OTHER | LOC: CT 08:16 | DX: C84.Z0 Other mature T/NK-cell lymphomas, unspecified site (principal); K57.90 Diverticulosis of intestine, part unspecified, without perforation or abscess without bleeding; N40.0 Benign prostatic hyperplasia without lower urinary tract symptoms; N28.1 Cyst of kidney, acquired ==

== ENCOUNTER → 2018-07-24 | Outpatient (CLI) | payer OTHER | END | disposition home or self-care (01) | LOC: LAB 11:25 | DX: E87.5 Hyperkalemia (principal) ==

== ENCOUNTER → 2018-11-13 | Day surgery (SDC) | payer OTHER ==
[~2018-11-13] VITALS: Ht 177.8 cm; Wt 78.0 kg
[~2018-11-13] MED LIST changes: +LISINOPRIL20 MG PO
--- NOTE | ~2018-11-13 | O ---
[place], [place] OPERATIVE NOTE NAME: [facility] [id number] UNIT #: [id number] ROOM: DOCTOR: NA MCFADDEN MD BIRTHDATE: [birth year] DOS: 11/13/2018 PREOPERATIVE DIAGNOSIS: Cataract, right eye. POSTOPERATIVE DIAGNOSIS: Cataract, right eye. OPERATION: Extracapsular cataract extraction by phacoemulsification with posterior chamber intraocular lens implantation, right eye. ANESTHESIA: Monitored standby. OPERATIVE FINDINGS AND PROCEDURE: 2% Xylocaine topical anesthetic gel was applied to the eye in the preop area. The patient was taken to the operating room and prepped and draped in the standard fashion for sterile intraocular surgery. A time out procedure was performed verifying correct patient, correct site and corrects lens with Lucia Mcfadden M.D. The operating microscope was swung into position and the lid speculum was inserted. Using a Cecille paracentesis blade, a paracentesis was made through clear cornea. Viscoelastic was used to fill the anterior chamber. Using a metal keratome a 2.4 mm self-sealing clear corneal cataract incision was made temporally at the limbus. Using a pre-bent 25 gauge cystotome needle, a standard continuous curvilinear capsulorrhexis was performed. The anterior capsule was removed with forceps. The lens nucleus was hydrodissected and phacoemulsified in the posterior chamber. Cortical material was removed with the irrigation aspiration hand piece and the posterior capsule was then polished with a curet under irrigation. The posterior chamber and capsular bag were filled with viscoelastic. A posterior chamber intraocular lens manufactured by: [employer], Model #[id number], and 18.5 diopters in strength were then inserted into the posterior chamber and within the capsular bag using the lens cartridge and injector system. Viscoelastic was removed using the irrigation aspiration handpiece. The anterior chamber was filled with balanced salt solution through the paracentesis. Both the paracentesis site and cataract incisions were hydrated with BSS and verified to be water-tight and self-sealing. Cefuroxime 1 mg/0.1 mL was injected into the anterior chamber through the paracentesis site. The incision checked to be water-tight using a Weck-Gianna sponge. The integrity of the cataract wound and ocular tension were checked. Lid speculum and drapes were removed. The patient was transferred from the operating room to the recovery room in satisfactory condition. [place], [place] OPERATIVE NOTE NAME: ANA PARKS [facility] UNIT #: [id number] ROOM: DOCTOR: NA MCFADDEN MD BIRTHDATE: [birth year] NA MCFADDEN MD CM:OPRECORD:OPERATIVE NOTE NA MCFADDEN MD 11/13/1844 interface
[2018-11-13 08:20] VITALS: BP 115/78
[2018-11-13 09:35] VITALS: BP 122/82
[2018-11-13 09:50] VITALS: BP 129/81
[2018-11-13 09:57] VITALS: BP 128/78
== END | disposition home or self-care (01) ==
LOC: SDC 11-07 14:00
DX: H25.11 Age-related nuclear cataract, right eye (principal); K21.9 Gastro-esophageal reflux disease without esophagitis; I10 Essential (primary) hypertension; F17.210 Nicotine dependence, cigarettes, uncomplicated; Z98.890 Other specified postprocedural states; Z98.42 Cataract extraction status, left eye; Z79.82 Long term (current) use of aspirin; Z79.899 Other long term (current) drug therapy; Z85.6 Personal history of leukemia; Z87.01 Personal history of pneumonia (recurrent); Z72.89 Other problems related to lifestyle; Z83.3 Family history of diabetes mellitus; Z82.49 Family history of ischemic heart disease and other diseases of the circulatory system

== ENCOUNTER → 2019-02-18 | Outpatient (CLI) | payer OTHER | END | disposition home or self-care (01) | LOC: CT 09:48 | DX: G91.2 (Idiopathic) normal pressure hydrocephalus (principal); R42 Dizziness and giddiness ==

== ENCOUNTER 2019-08-08 08:56 | Emergency (ER) | payer OTHER ==
[~2019-08-08] VITALS: Ht 185.4 cm; Wt 81.6 kg
[2019-08-08 09:32] LABS: HEMATOCRIT 41.2 % (42.0-52.0); MEAN CELL VOLUME 87.1 fl (80.0-94.0); MEAN CORPUSCULAR HGB 29.6 pg (27.0-31.0); MEAN PLATELET VOLUME 9.4 fl (9.6-12.3); PLATELET COUNT AUTOMATED 191 10*3/uL (130-400); RED BLOOD COUNT 4.73 10*6/uL (4.50-5.90); RED CELL DISTRI WIDTH 15.3 % (0-14.5); WHITE BLOOD COUNT 7.2 10*3/uL (4.8-10.8)
[2019-08-08 09:43] LABS: ACT PARTIAL THROMBO TIME 33.9 SECONDS (20.0-32.1)
[2019-08-08 09:48] LABS: ALBUMIN 3.3 gm/dl (3.1-4.5); ALKALINE PHOSPHATASE 108 U/L (45-117); BUN 25 mg/dl (7-24); CHLORIDE 95 mmol/L (98-107); CREATININE 1.14 mg/dL (0.70-1.30); POTASSIUM 4.4 mmol/L (3.5-5.1); SGOT/AST 65 IU/L (3-35); SGPT/ALT 31 U/L (12-78); SODIUM 127 mmol/L (136-145); TOTAL PROTEIN 7.9 gm/dL (6.4-8.2); TROPONIN I 0.022 ng/ml (<0.045)
[2019-08-08 09:51] LABS: ATYPICAL LYMPHS 4 % (0-0); PLATELET SUFFICIENCY NORMAL (NORMAL); TOTAL CELLS COUNTED 100 #CELLS
[2019-08-08 09:52] LABS: TOXIC GRANULATION SLIGHT; VACUOLATION OF NEUTROPHILS SLIGHT
[2019-08-08 10:01] LABS: CPK 2636 U/L (39-308)
[2019-08-08 12:19] LABS: BILIRUBIN 1+ (NEGATIVE); BLOOD 3+ (NEGATIVE); CLARITY SL CLOUDY (CLEAR); COLOR YELLOW (YELLOW); GLUCOSE NEGATIVE (NEGATIVE); KETONE NEGATIVE (NEGATIVE); LEUKO ESTERASE NEGATIVE (NEGATIVE); NITRITE NEGATIVE (NEGATIVE); PH 5.5 (5.0-9.0); SPECIFIC GRAVITY >= 1.030 (1.005-1.030)
[2019-08-08 12:38] LABS: BACTERIA 3+
== END 2019-08-08 12:41 | disposition short-term general hospital (02) ==
LOC: ED 08:56
PROVIDERS: Emergency Medicine
DX: S72.141A Displaced intertrochanteric fracture of right femur, initial encounter for closed fracture (principal); T79.6XXA Traumatic ischemia of muscle, initial encounter; R42 Dizziness and giddiness; R41.0 Disorientation, unspecified; J44.9 Chronic obstructive pulmonary disease, unspecified; K21.9 Gastro-esophageal reflux disease without esophagitis; E78.5 Hyperlipidemia, unspecified; C91.10 Chronic lymphocytic leukemia of B-cell type not having achieved remission; I10 Essential (primary) hypertension; Z79.899 Other long term (current) drug therapy; Z79.82 Long term (current) use of aspirin; Z98.2 Presence of cerebrospinal fluid drainage device; Z87.891 Personal history of nicotine dependence; W18.30XA Fall on same level, unspecified, initial encounter; Y93.01 Activity, walking, marching and hiking; Y92.098 Other place in other non-institutional residence as the place of occurrence of the external cause; Y99.8 Other external cause status

== ENCOUNTER 2019-08-30 13:27 | Inpatient (IN) | payer OTHER ==
[~2019-08-30] VITALS: Ht 172.7 cm; Wt 95.3 kg
[2019-08-30 13:37] VITALS: BP 151/93
[2019-08-30 14:43] LABS: HEMATOCRIT 27.8 % (42.0-52.0); MEAN CELL VOLUME 87.4 fl (80.0-94.0); MEAN CORPUSCULAR HGB 28.3 pg (27.0-31.0); MEAN CORPUSCULAR HGB CONC 32.4 g/dl (33.0-37.0); MEAN PLATELET VOLUME 8.7 fl (9.6-12.3); PLATELET COUNT AUTOMATED 316 10*3/uL (130-400); RED BLOOD COUNT 3.18 10*6/uL (4.50-5.90); RED CELL DISTRI WIDTH 15.9 % (0-14.5); WHITE BLOOD COUNT 3.2 10*3/uL (4.8-10.8)
[2019-08-30 14:56] LABS: ACT PARTIAL THROMBO TIME 32.6 SECONDS (20.0-32.1)
[2019-08-30 14:59] LABS: ALKALINE PHOSPHATASE 161 U/L (45-117); BUN 75 mg/dl (7-24); CHLORIDE 111 mmol/L (98-107); CREATININE 3.32 mg/dL (0.70-1.30); LIPASE 68 U/L (73-393); POTASSIUM 5.6 mmol/L (3.5-5.1); SGOT/AST 14 IU/L (3-35); SGPT/ALT 16 U/L (12-78); SODIUM 138 mmol/L (136-145); TOTAL PROTEIN 6.4 gm/dL (6.4-8.2); TROPONIN I < 0.015 ng/ml (<0.045)
[2019-08-30 15:20] LABS: ATYPICAL LYMPHS 2 % (0-0); TOTAL CELLS COUNTED 100 #CELLS
[2019-08-30 15:21] LABS: OVALOCYTES FEW; PLATELET SUFFICIENCY NORMAL (NORMAL)
[2019-08-30 16:42] VITALS: BP 138/93
[2019-08-30 17:04] VITALS: BP 138/93
--- NOTE | 2019-08-30 17:30 | NUR ---
PATIENT INCONTINENT OF LARGE AMOUNT OF URINE. PATIENT REFUSES TO MOVE FOR WOUND CHECK OR TO BE CLEANED. PATIENT STATES THAT HE WOULD PREFER TO DO IT WHEN TAKEN UPSTAIRS D/T PAIN IN HIS RIGHT HIP.
[2019-08-30] MEDS ORDERED: PERCOCET 7.5-31 EACH PO (17:35)
[2019-08-30] MEDS ORDERED: FLOMAX0.4 MG PO (17:36)
[2019-08-30] MEDS ORDERED: DULOXETINE HCL30 MG PO (17:36)
[2019-08-30] MEDS ORDERED: VANCO 1.251.25 GM/25 IV (17:37)
[2019-08-30] MEDS ORDERED: REMERON15 M2 PO (17:37)
[2019-08-30] MEDS ORDERED: FLORASTOR250 MG PO (17:38)
[2019-08-30] MEDS ORDERED: SIMVASTATIN40 MG PO (17:39)
--- NOTE | 2019-08-30 17:44 | NUR ---
MED REC UPDATED VIA LIST PROVIDED BY [facility].
[2019-08-30 17:45] VITALS: BP 143/80
--- NOTE | 2019-08-30 17:45 | NUR ---
A 74, admitted to 4E, under the services of CESAR Zarco MD with a diagnosis of Renal Failure Bilateral lower extremity edema. Chief complaint is basic needs. Patient arrived via stretcher from ER. Monitor applied. Initial assessment completed. Vital signs taken and recorded. CESAR ZARCO MD notified of admission to the unit. Orders received. See assessment for past medical history, medications and allergies. Patient and/or family oriented to unit. [address] visitation policy reviewed. Clothing/patient valuable form completed. RADHAMES HOWARD
[2019-08-30 18:00] VITALS: BP 143/80
--- NOTE | 2019-08-30 18:30 | NUR ---
Notified of patients arrival to unit. Brief history and labs reviewed. See new orders.
--- NOTE | 2019-08-30 19:05 | NUR ---
Face to face encounter with regarding wound care orders.
[2019-08-30 20:00] VITALS: BP 151/81
--- NOTE | 2019-08-30 22:00 | NUR ---
PER DR. PARKER'S ORDERS, LEBLANC CATHETER INSERTED AT THIS TIME WITHOUT INCIDENT, STERILE TECHNIQUE FOLLOWED DURING INSERTION. PATIENT TOLERATED WELL WITH SOME INITIAL DISCOMFORT. BALLOON INFLATED WITH 10CC STERILE WATER, SECURED TO RIGHT LEG WITH COMMERCIAL DEVICE, IMMEDIATELY DRAINED 1400CC OF CRISTOBAL,TEA COLORED, CLOUDY URINE.
[2019-08-31] VITALS: BP 136/77
--- NOTE | 2019-08-31 03:46 | NUR ---
24 HOUR CHART CHECK COMPLETE
[2019-08-31 05:19] LABS: URINE CREATININE RANDOM 15.4 mg/dL
[2019-08-31 06:05] LABS: CREATININE 3.26 mg/dL (0.70-1.30); HEMATOCRIT 26.6 % (42.0-52.0); HEMOGLOBIN 8.5 g/dl (14.0-18.0); MEAN CELL VOLUME 88.1 fl (80.0-94.0); MEAN CORPUSCULAR HGB 28.1 pg (27.0-31.0); MEAN PLATELET VOLUME 8.8 fl (9.6-12.3); PLATELET COUNT AUTOMATED 315 10*3/uL (130-400); RED BLOOD COUNT 3.02 10*6/uL (4.50-5.90); RED CELL DISTRI WIDTH 15.9 % (0-14.5); WHITE BLOOD COUNT 3.9 10*3/uL (4.8-10.8)
[2019-08-31 06:16] LABS: VANCOMYCIN TROUGH 32.6 ug/mL (10-20)
[2019-08-31 07:24] LABS: OVALOCYTES FEW; PLATELET SUFFICIENCY NORMAL (NORMAL); TOTAL CELLS COUNTED 100 #CELLS
[2019-08-31 08:00] VITALS: BP 136/78
--- NOTE | 2019-08-31 09:15 | NUR ---
RESTING IN BED. NO ACUTE DISTRESS NOTED. RESPIRATIONS EASY. LUNGS DIMINISHED. PULSE OX 94% RA. ABD SOFT WITH HYPER BS. LEBLANC PATENT DRAINING CRISTOBAL URINE, BLOOD TINGED. +2 BLE EDEMA WITH TUBI-MEASURER MACHINE IN PLACE. MEDICATED WITH PERCOCET PER PRN ORDER FOR COMPLAINTS OF BACK PAIN RATING A 5. CALL LIGHT WITHIN REACH. WILL MONITOR. BED ALARM MAINTAINED FOR SAFETY
--- NOTE | 2019-08-31 09:35 | NUR ---
Patient admitted from [facility] under SNF LOC. Pt states that prior to his fall and hip surgery, he was living independently. Pt states that he is considering discharging to [facility] due to their [place] contract. Pt is a and is 100% service connected. Pt reports that his son Kelton Zurita is his DPOAHC but pt was unable to provide a phone number. Pt states that his children are helping him with his SNF decision.
--- NOTE | 2019-08-31 10:00 | NUR ---
MEDS EFFECTIVE. RESTING MORE COMFORTABLY. CALL LIGHT WITHIN REACH. NO FURTHER VOICED COMPLAINTS
[2019-08-31 12:00] VITALS: BP 132/77
[2019-08-31] MEDS ORDERED: ESCITALOPRAM OX10 MG PO (12:10)
--- NOTE | 2019-08-31 14:00 | NUR ---
DR HILL HERE TO ASSESS PATIENT AND DISCUSS PLAN OF CARE
--- NOTE | 2019-08-31 15:43 | NUR ---
MEDICATED WITH PERCOCET PER PRN ORDER FOR COMPLAINTS OF BACK PAIN RATING A 5. CALL LIGHT WITHIN REACH. WILL MONITOR FOR EFFECTIVENESS
[2019-08-31 16:00] VITALS: BP 137/74
--- NOTE | 2019-08-31 16:50 | NUR ---
DR GOODMAN CONTACTED AND INFORMED OF CONSULT. WILL SEE PATIENT TOMORROW
--- NOTE | 2019-08-31 17:00 | NUR ---
MEDS APPEAR EFFECTIVE. RESTING WITH EYES CLOSED. RESPIRATIONS EASY. CALL LIGHT WITHIN REACH.
[2019-08-31 17:18] LABS: BILIRUBIN NEGATIVE (NEGATIVE); BLOOD 3+ (NEGATIVE); CLARITY SL CLOUDY (CLEAR); COLOR YELLOW (YELLOW); GLUCOSE NEGATIVE (NEGATIVE); KETONE NEGATIVE (NEGATIVE); LEUKO ESTERASE NEGATIVE (NEGATIVE); NITRITE NEGATIVE (NEGATIVE); SPECIFIC GRAVITY 1.025 (1.005-1.030)
[2019-08-31 17:25] LABS: BACTERIA TRACE; RBC 31-40 rbc/hpf (0-2)
--- NOTE | 2019-08-31 19:17 | NUR ---
24 HOUR CHART CHECK COMPLETE
[2019-08-31 20:00] VITALS: BP 130/67
--- NOTE | 2019-08-31 20:25 | NUR ---
PATIENT ASSESSMENT COMPLETED AT THIS TIME WITHOUT INCIDENT. LEBLANC CATHETER INTACT, SECURE AND DRAINING CRISTOBAL COLORED, CLOUDY URINE AT THIS TIME. PATIENT DENIES ANY CHEST PAIN/PRESSURE, OR SHORTNESS OF BREATH AT THIS TIME. PICC LINE DRESSING INTACT, PICC LINE FLUSHES EASILY BOTH PORTS, NEGATIVE BLOOD RETURN ON EITHER PORT, SWAB CAPS INTACT. CALL LIGHT WITHIN REACH WILL CONTINUE TO MONITOR.
--- NOTE | 2019-08-31 21:36 | NUR ---
PATIENT MEDICATED WITH PRN NORCO AT THIS TIME FOR PAIN 6/10 IN HIS RIGHT HIP AND LEG, PATIENT ALERT AND ORIENTED AT THIS TIME. CALL LIGHT WITHIN REACH, WILL CONTINUE TO MONITOR.
--- NOTE | 2019-08-31 22:15 | NUR ---
PATIENT RATES PAIN 4/10 AT THIS TIME FOLLOWING PRN NORCO ADMINISTRATION
[2019-09-01] VITALS: BP 135/79
[2019-09-01 07:22] LABS: HEMATOCRIT 25.7 % (42.0-52.0); HEMOGLOBIN 8.2 g/dl (14.0-18.0); MEAN CELL VOLUME 87.1 fl (80.0-94.0); MEAN CORPUSCULAR HGB 27.8 pg (27.0-31.0); MEAN CORPUSCULAR HGB CONC 31.9 g/dl (33.0-37.0); MEAN PLATELET VOLUME 8.9 fl (9.6-12.3); PLATELET COUNT AUTOMATED 324 10*3/uL (130-400); RED BLOOD COUNT 2.95 10*6/uL (4.50-5.90); RED CELL DISTRI WIDTH 15.9 % (0-14.5); WHITE BLOOD COUNT 4.1 10*3/uL (4.8-10.8)
[2019-09-01 07:38] LABS: CREATININE 2.75 mg/dL (0.70-1.30)
[2019-09-01 07:43] LABS: POTASSIUM 3.9 mmol/L (3.5-5.1)
[2019-09-01 07:48] LABS: OVALOCYTES FEW; PLATELET SUFFICIENCY NORMAL (NORMAL); TOTAL CELLS COUNTED 100 #CELLS
[2019-09-01 08:00] VITALS: BP 148/80
--- NOTE | 2019-09-01 08:00 | NUR ---
PHYSICAL THERAPY Screen and PT eval received will follow, thank you Renetta Allen PT
--- NOTE | 2019-09-01 08:00 | NUR ---
Occupational therapy orders received and nursing screen additionally received. Will follow up with patient. Rebekah Hassan, OTR/L
--- NOTE | 2019-09-01 08:16 | NUR ---
Patient comes in from [facility] short term and is asking for a referral to [facility] under [facility] benefits. Patient is stating he has 100% coverage. I am unable to verify VA benefits today due to facililty being closed for the hol. Will fax referral to [facility] for review.
--- NOTE | 2019-09-01 09:00 | NUR ---
Drug Abuse Treatment Specialist in to see patient. Discussed short term SNF and he is agreeable. He is currently at [facility] but his children were going to look at [facility] today due to his VA connection. systems requirements planner following.
--- NOTE | 2019-09-01 09:00 | NUR ---
PT MEDICATED WITH PRN PERCOCET FOR C/O GENERALIZED PAIN, 01/20. WILL MONITOR.
--- NOTE | 2019-09-01 09:16 | NUR ---
Initial referral faxed to [facility] for review. Will require PT/OT evals and precert. Waiting on PT/OT and review.
--- NOTE | 2019-09-01 09:28 | NUR ---
PT DOES NOT WANT TO SEE PULMONOLOGY AND CARDIOLOGY. DR. GAMBINO NOTIFIED. CONSULTS CANCELLED.
--- NOTE | 2019-09-01 09:33 | NUR ---
PARKSANA PATEL [id number] Please refer to the physician's history and physical for past medical history, comorbid conditions, and allergies. Diagnosis: BILATERAL LOWER EXTREMITY EDEMA,RENAL FAILURE Nelson Score: 12,HIGH RISK WOUND DESCRIPTIONS: Wound Number: 1 Location of the wound: RIGHT BUTTOCK MEDIAL Type of wound: STAGE 3 Thickness: Full Size: 0.3cm X 0.5cm X 0.1cm Tunneling: NONE Undermining: NONE Sinus Tract: NONE Presence of Exudate: Serous Amount: Light Color: Yellow Odor: None Periwound Skin Appearance: Erythema Wound edges: APPROXIMATED Pain (associated with wound): DENIED AT TIME OF ASSESSMENT How does patient state this happened? PATIENT UNSURE HOW THIS HAPPENED. Wound Number: 2 Location of the wound: RIGHT BUTTOCK LATERAL Type of wound: STAGE 3 Thickness: Full Size: 1.3cm X 0.4cm X 0.1cm Tunneling: NONE Undermining: NONE Sinus Tract: NONE Presence of Exudate: Serous Amount: Light Color: Yellow Odor: None Periwound Skin Appearance: Erythema Wound edges: APPROXIMATED Pain (associated with wound): DENIED AT TIME OF ASSESSMENT. How does patient state this happened? PATIENT UNSURE HOW THIS HAPPENED. WOUND #3 RIGHT HIP INTACT SCAB NOTED. NO DRAINAGE NOTED AT TIME OF ASSESSMENT. Surface the patient is resting on: Isoflex SKIN PREVENTION RECOMMENDATION: 1. Pressure redistribution support surface as appropriate 2. Elevate heels 3. Remove boots/TEDS every shift and reapply 4. Head of bed 30 degrees as tolerated 5. Assess nutrition and hydration 6. Manage moisture 7. Avoid the use of containment devices while in bed 8. Use absorptive products on surfaces limit layers of linens on bed 9. Turn and reposition every 1-2 hours in bed and every 1 hour in chair as tolerated 10. Weight shifts every 15 minutes while up in chair 11. Offloading with pillows or device to keep heels elevated off bed 12. Monitor skin at least every shift 13. Inspect under medical devices twice a day WOUND TREATMENT RECOMMENDATIONS: STAGE 3 GUIDELINES TO RIGHT BUTTOCK MEDIAL AND RIGHT BUTTOCK LATERAL: CLEANSE WITH NSS APPLY SUREPREP AROUND THE WOUND THERAHONEY TO WOUND BED AND COVER WITH OPTIFOAM GENTLE. WHEEL CHAIR CUSHION WHEN OUT OF BED.
--- NOTE | 2019-09-01 10:11 | NUR ---
Messaged left at [phone] Castro to notify of wound care recommendations.
--- NOTE | 2019-09-01 10:20 | NUR ---
PHYSICAL THERAPY Attempted to see pt for evaluation at the bedside stating he is "too tired and just got back to bed" pt does not want to do any therapy this AM stating to "come back after lunch" will follow Renetta Allen PT
--- NOTE | 2019-09-01 10:20 | NUR ---
Occupational therapy orders received and chart reviewed. Patient refusing OT evaluation at this time. Patient stating he is "too tired" and would prefer to be evaluated at a later date. Will follow up. Thank you. Rebekah Hassan OTR/L
[2019-09-01 12:00] VITALS: BP 146/76
--- NOTE | 2019-09-01 12:19 | NUR ---
Faxed updated clinicals to [facility] for review. patient comes in from [facility] and requires PT/OT evals and precert to return. This initial referral was also faxed to [facility]; patient would like to go under VA benefits. Unable to verify with VA today due to MLK holiday
--- NOTE | 2019-09-01 12:37 | NUR ---
Spoke with Dr. Castro regarding wound care recommenations he stated it was okay to put them in.
--- NOTE | 2019-09-01 12:45 | NUR ---
Occupational therapy orders received and OT evaluation complered in full on floor four. Patient precautions include fall risk, R LE WBAT, R hip ORIF, ww use, BPV. Per OT eval, patient recommends a SNF. Patient would benefit from continued OT treatment to maximize safety and independence with ADLs, mobility, and transfers[place], [id number]. Thank you for the referral. Rebekah Hassan, OTR/L
--- NOTE | 2019-09-01 13:26 | NUR ---
PT MEDICATED WITH PRN PERCOCET FOR C/O RIGHT HIP PAIN. WILL MONITOR.
--- NOTE | 2019-09-01 13:38 | NUR ---
PHYSICAL THERAPY Sandy completed full report to follow moderate complexity leverl [id number] recomend SNF at discharge. PT to work on transfers, amb with AD, balance/safety and strengthening. Renetta Allen PT
[2019-09-01 16:00] VITALS: BP 150/80
--- NOTE | 2019-09-01 19:35 | NUR ---
PRN PERCOCET GIVEN FOR PT COMPLAINTS OF RIGHT LEG PAIN RATING IT 5/10. CALL LIGHT WITHIN REACH, WILL MONITOR
[2019-09-01 20:00] VITALS: BP 166/82
--- NOTE | 2019-09-01 23:45 | NUR ---
PATIENT SLEEPING, NO DISTRESS NOTED
[2019-09-02] VITALS: BP 142/80
--- NOTE | 2019-09-02 04:34 | NUR ---
Upon discharge recommend patient to follow up for wound care in outpatient setting continue current wound care orders at discharging facility
--- NOTE | 2019-09-02 04:40 | NUR ---
PATIENT SITTING UP IN BED WATCHING TV AND PLAYING ON PHONE. NO DISTRESS NOTED. NO COMPLAINTS. WILL CONTINUE TO MONITOR
[2019-09-02 06:00] LABS: ALBUMIN 2.2 gm/dl (3.1-4.5); CREATININE 2.15 mg/dL (0.70-1.30); PHOSPHOROUS 4.1 mg/dL (2.5-4.9); POTASSIUM 3.9 mmol/L (3.5-5.1); TOTAL PROTEIN 6.4 gm/dL (6.4-8.2)
[2019-09-02 06:10] LABS: VANCOMYCIN RANDOM 24.2 ug/mL
[2019-09-02 06:17] LABS: HEMATOCRIT 27.1 % (42.0-52.0); HEMOGLOBIN 8.7 g/dl (14.0-18.0); MEAN CELL VOLUME 89.4 fl (80.0-94.0); MEAN CORPUSCULAR HGB 28.7 pg (27.0-31.0); MEAN CORPUSCULAR HGB CONC 32.1 g/dl (33.0-37.0); MEAN PLATELET VOLUME 9.1 fl (9.6-12.3); PLATELET COUNT AUTOMATED 325 10*3/uL (130-400); RED BLOOD COUNT 3.03 10*6/uL (4.50-5.90); RED CELL DISTRI WIDTH 15.9 % (0-14.5)
--- NOTE | 2019-09-02 06:54 | NUR ---
24 HR chart check completed.
[2019-09-02 07:01] LABS: PLATELET SUFFICIENCY NORMAL (NORMAL); POLYCHROMASIA SLIGHT; TOTAL CELLS COUNTED 100 #CELLS
[2019-09-02 08:00] VITALS: BP 160/90
--- NOTE | 2019-09-02 08:32 | NUR ---
PATIENT MEDICATED WITH PO PERCOCET AT THIS TIME PER ORDER FOR COMPLAINTS OF RIGHT HIP & BACK PAIN 03/22. WILL MONITOR FOR EFFECTIVENESS.
--- NOTE | 2019-09-02 08:58 | NUR ---
Spoke with Alexandra at the [facility] as patient would like to get group home rehab benefits through the VA. Liza stated there is a new "mission Act" that will cover 100 skilled rehab days for veterans at local facilities. Faxed referral to the VA waiting for approval.
--- NOTE | 2019-09-02 09:50 | NUR ---
PER PATIENT, PRN MEDICATION HAS BEEN EFFECTIVE. NO FURTHER COMPLAINTS AT THIS TIME.
--- NOTE | 2019-09-02 11:05 | NUR ---
PHYSICAL THERAPY Patient seen this am 1:1 for therapy visit and was resting supine in bed upon therapist arrival. Patient identified by name / and reports mild R LE Groin pain, but unable to rate on 0-10 scale. Patient transfers supine to sit EOB with MIN A, tolerating a minute or so to collect himself and needed a little therapist support of R LE secondary to pain c/o. Patient performed several sit to stand transfers, MIN A x 2, wh walker standing support, tolerating 45 seconds static stand first attempt and only 20 seconds 2nd attmept due to quick onset of fatigue / LE muscle weakness. Patient also unable to side step to L secondary to increased difficulty with L LE foot advance / Poor weight shifting. Patient needed v/c for proper hand placement during all transfers to improve technique / performance and returned to supine in bed, MOD A x 2. Patient remained in bed with call light, tray table, telephone and bed alarm for safety. Will continue per POC as tolerated, total treatment time 16 minutes. Ryley Naranjo, FITTING ROOM ASSOCIATE
--- NOTE | 2019-09-02 11:20 | NUR ---
OT NOTE Pt was seen this A.M. 1:1 for 20 minute OT session. Upon arrival pt was supine in bed. Pt identified by name and . Pt transferred supine to sit EOB with modA X 2. Challenged pt's dynamic sitting balance needed for increased I and enhanced safety, while weight shifting, crossing midline, and reaching over all planes pt was able to maintain F-/F+ sitting balance throughout. Pt completed multiple sit to stand transfers from bed level with Malik X 2 and use of w/w for UE support. Challenged pt's static standing tolerance needed for increased I in self care tasks and functional transfers, pt was able to tolerate aprox 30-45 seconds at a time before sitting due to fatigue. Pt then transferred back into bed sit to supine with modA X 2. There he was left with call light in hand, tray table in place, and bed alarm activated for safety. Continue with rec D/C plan to SNF. SANDRO Burns
[2019-09-02 11:25] LABS: IRON 39 ug/dL (65-175); TOTAL IRON BINDING CAPACITY 188 ug/dl (250-450)
--- NOTE | 2019-09-02 11:47 | NUR ---
Senior Strategy Manager in to see patient. Discussed short term SNF and he remains agreeable. Discussed the new act that was passed that allows veterans 100 days in a local facility as long as the patient goes to an assigned facility. Explained [facility] is no longer in contract with the VA for short term. Discussed about going back to [facility] and he would like to speak to his children before making that decision. Awaiting decision. planner/scheduler notified.
[2019-09-02 12:00] VITALS: BP 138/84
[2019-09-02 16:00] VITALS: BP 138/86; BP 175/100
[2019-09-02 20:00] VITALS: BP 145/96
--- NOTE | 2019-09-02 20:29 | NUR ---
PATIENT IS RESTING IN BED WITH EASY AND REGULAR RESPERS ON ROOM AIR. ASSESSMENT IS COMPLETE WITH NO S/S OF DISTRESS NOTED AT THIS TIME. PATIENT C/O PAIN TO RIGHT LEG RATING A 6/10. PRN PERCOCET GIVEN ORDERED, AND PATIENT TOLERATED WELL. BED IS LOW, LOCKED, ALARMED, AND CALL LIGHT IS WITHIN REACH. WILL CONTINUE TO MONITOR, SEE SHIFT ASSESSMENT.
[2019-09-03] VITALS: BP 150/92
--- NOTE | 2019-09-03 04:11 | NUR ---
PATIENT SLEEPING, RESPERS NONLABORED ON ROOM AIR. CALL LIGHT IS WITHIN REACH.
[2019-09-03 05:51] LABS: ALBUMIN 2.1 gm/dl (3.1-4.5); CREATININE 1.76 mg/dL (0.70-1.30); POTASSIUM 3.8 mmol/L (3.5-5.1); TOTAL PROTEIN 6.6 gm/dL (6.4-8.2)
[2019-09-03 08:00] VITALS: BP 158/86; BP 160/90
--- NOTE | 2019-09-03 08:34 | NUR ---
PERCOCET GIVEN FOR C/O RIGHT HIP PAIN OF 6/10. WILL CONT TO MONITOR. CALL LIGHT IN REACH.
--- NOTE | 2019-09-03 09:00 | NUR ---
Contact Lens Molder in to see patient. Discussed choice of SNF and he states his daughter will be coming in at 10 am and he will discuss with her. NM has started the process for [facility]. When medically stable he will be discharged to [facility]. train planner following.
--- NOTE | 2019-09-03 09:34 | NUR ---
PERCOCET EFF. WILL CONT TO MONITOR. CALL LIGHT IN REACH.
--- NOTE | 2019-09-03 10:45 | NUR ---
PHYSICAL THERAPY Patient seen this am 1:1 for therapy visit and was resting supine in bed upon therapist arrival. Patient identified by name / and reported 6/10 R hip pain. Patient was pleasant this morning tranferting supine to sit EOB with MIN A x 2, tolerating static EOB sit x several minutes to collect himself. Patient educated on safe transfer technique and peformed sit to stand MIN A, demonstrating improved B UE support. Patient completed SPT to bedside chair, use of wh walker standing support, MIN A, demonstrating increased difficulty with safe sequence and advancing walker secondary to R hip pain. Patient resting HR 97 bpm which increased to 112 bpm during standing activities. Following brief seated rest, patient able to complete seated B LE therex, all planes, x 10 reps each to increase LE strength. Patient AAROM for R hip marching and LAQ secondary to increased weakness / pain. Patient remained in bedside chair with call light, tray table, telephone and body alarm for safety. Will continue per POC as tolerated, total treatment time 17 minutes. Ryley Naranjo, WEB PAGE DEVELOPER
--- NOTE | 2019-09-03 11:24 | NUR ---
OT NOTE PATIENT SEEN OT THIS DATE 20 MINUTES.PATIENT INDENTIFIED BY NAME AND DATE OF . PATIENT COMPLETED SUPINE TO SIT EOB MIN A. COMPLETED SIT BALANCE EOB CGA COMPLETING GROOMING TASK CGA WASH FACE AFTER PATIÑO. COMPLETED SIT TO STAND PIVOT TRANSFER BED TO W/C MIN A X 2. PATIENT DEMONSTRATED STANDING TOLERANCE USE FWW APPROX 1 MINUTE FOR INCREASE INDEPENDENCE STANDING COMPONENTS ADL TASKS. COMPLETED BUE STRENGTHENING AROM ALL PLANES 4 EXERCISES X 15 REPS SEATED WITH MODERATE REST BREAKS/VERBAL CUES TECHNIQUE FOR ENERGY CONSERVATION AND TO INCREASE BUE STRENGTH FOR INCREASE INDEPENDENCE DURING FUNCTIONAL TRANSFER AND ADL TASKS. CONTINUE TOWARDS PLAN OF CARE. PATIENT SEATED IN RECLINER WITH CALL LIGHT AND CHAIR ALARM IN TACT. JEFF JO
[2019-09-03 12:00] VITALS: BP 136/84
--- NOTE | 2019-09-03 12:36 | NUR ---
DR HILL NOTIFIED OF HR 136. NEW ORDERS RECEIVED FOR METOPROLOL AND EKG
--- NOTE | 2019-09-03 12:40 | NUR ---
NOTIFIED DR HILL PT NOT ON DVT PROPHYLACTIC OTHER THAN ASA. NEW ORDER RECEIVED FOR HEPARIN.
--- NOTE | 2019-09-03 12:43 | NUR ---
PER DR HILL D/C HEPARIN SINCE PT ORDERED ASA 325 BID FOR DVT PROPHYLACTIC BY PODIATRY.
--- NOTE | 2019-09-03 14:19 | NUR ---
Alexandra from the [place] called and stated [place] has approved a snf stay for this patient, however they are not approving at any of the local facilities. They will approve snf at [facility] in [place]. In to see patient but he was sleeping. Contacted daughter Lexus who contacted Dolly. All are in agreement that patient will definately return to [facility] under his [facility] for a few more weeks prior to them transitioning him [facility] care at [place] through the [place]. For our discharge planning, patient will require precert to return to [facility]>
--- NOTE | 2019-09-03 14:27 | NUR ---
Patient updated clinicals and therapy faxed to Martha at [facility]. Asked to start precert for patient to return when stable. Waiting for auth.
--- NOTE | 2019-09-03 15:36 | NUR ---
OCCUPATIONAL THERAPY CO-SIGN I approve of the Occupational Therapy notes written above. Rebekah Hassan, OTR/L
[2019-09-03 16:00] VITALS: BP 143/88
--- NOTE | 2019-09-03 19:25 | NUR ---
PATIENT IS RESTING IN BED WITH EASY AND REGULAR RESPERS ON ROOM AIR. ASSESSMENT IS COMPLETE WITH NO S/S OF DISTRESS NOTED OR C/O AT THIS TIME. PATIENT WAS REPOSITIONED IN BED AND IS REFUSING TO BE TURNED. BED IS LOW, LOCKED, ALARMED, AND CALL LIGHT IS WITHIN REACH. WILL CONTINUE TO MONITOR, SEE SHIFT ASSESSMENT.
[2019-09-03 20:00] VITALS: BP 144/85
--- NOTE | 2019-09-03 22:00 | NUR ---
PATIENT IS REFUSING TO BE TURNED AT THIS TIME AFTER ATTEMPTS FROM PATIENT ATTENDENTS AND RN.
[2019-09-04] VITALS: BP 147/76
--- NOTE | 2019-09-04 05:21 | NUR ---
PRN PERCOCET GIVEN FOR C/O RIGHT HIP PAIN, PATIENT TOLERATED WELL. CALL LIGHT IS WITHIN REACH, WILL MONITOR EFFECT.
[2019-09-04 08:00] VITALS: BP 150/82; BP 158/90
[2019-09-04 08:02] LABS: POTASSIUM 3.3 mmol/L (3.5-5.1)
[2019-09-04 08:04] LABS: CREATININE 1.46 mg/dL (0.70-1.30); TOTAL PROTEIN 6.2 gm/dL (6.4-8.2)
--- NOTE | 2019-09-04 10:02 | NUR ---
PERCOCET GIVEN FOR C/O RIGHT HIP PAIN OF 04/22. WILL CONT TO MONITOR. CALL LIGHT IN REACH.
--- NOTE | 2019-09-04 11:00 | NUR ---
PHYSICAL THERAPY Patient seen this am 1;1 for therapy visit and was resting supine in bed upon therapist arrival. Patient identified by name / and was joined by his daughter who was visiting this morning. Patient reports 7/10 R hip pain and stated he felt generalized weakness all over. Patient presented with IV treatment this session and transfers supine to sit EOB with MOD A x 2. Patient performed several sit to stand transfers MIN A with use of wh walker standing support, CGA, requiring v/c to stand tall with increased B hand pressure on walker to prevent retrograde posture. Patient instructed on safe SPT transfer with emphasis on picking up his feet and completed SPT to bedside chair, including 4-5 forward steps with use of wh walker, MIN A. Patient was very cautious / guarded during transfer and needed several v/c's to complete safely with increased confidence. Patient also fatigued quickly, needing brief seated rest break prior to completing seated B LE therex, all planes, x 10 reps each. Patient AROM on L LE and AAROM on R LE for all ex. Patient was very happy with his performance this session and remained in bedside chair with call light, tray table, cell phone and body alarm for safety. Will continue per POC as tolerated, total treatment time 16 minutes. Ryley Naranjo, VP FOUNDATION
--- NOTE | 2019-09-04 11:02 | NUR ---
PERCOCET EFF. WILL CONT TO MONITOR. CALL LIGHT IN REACH.
--- NOTE | 2019-09-04 11:30 | NUR ---
OT NOTE PATIENT SEEN OT 16 MINUTES THIS DATE. PATIENT IDENTIFIED BY NAME AND DATE OF . COMPLETED LB DRESSING SOCKS DEPENDENT WITH COMPLAIN OF TENDERNESS RLE WITH DRESSING TASK. PATIENT COMPLETED SUPINE TO SIT EOB MIN A X 2. COMPLETED STAND PIVOT TRANSFER BED TO RECLINER MIN A X 2 USE FWW SUPPORT AND MOD VERBAL CUES TECHNIQUE. COMPLETED STATIC STANDING USE FWW SUPPORT APROX 1 1/2 MINUTES WITH COMPLAIN OF WEAKNESS BLE WITH STANDING FOR INCREASE STAND TOLERANCE DURING STAND COMPONENTS ADL TASKS.PATIENT IN RECLINER IN CARE OF COMPONENTS ENGINEER.CONTINUE TOWARDS PLAN OF CARE. JEFF PACHECO/Seema
[2019-09-04 12:00] VITALS: BP 130/78
--- NOTE | 2019-09-04 12:00 | NUR ---
Notified Dr. Castro of patient denied [facility] due to not medically stable. Dr. Castro to call [facility] [phone] opt 2, ref # [id number] by 4:30 pm.
--- NOTE | 2019-09-04 12:45 | NUR ---
PHYSICAL THERAPY Patient seen this pm 1:1 for therapy visit and was sitting up in bedside chair following lunch upon therapist arrival. Patient identified by name / and requested transfer back to bed stating he was uncomfortable sitting up in chair since 11 am. Daughter was present for entire treatment as patient transfers from low chair surface sit to stand, MIN x 2, performing SPT to EOB sit, use of wh walker standing support, MIN A. Patient demonstrated difficulty once again advancing feet forward and side ways, but had less difficulty backing up 3-4 steps. Patient needed v/c for increased posture and safe walker step sequencing. Patient returned to supine in bed MOD A with R LE support secondary to c/o of 7/10 R hip pain. Patient remained in bed with call light, tray table, telephone and bed alarm for safety. Will continue per POC as tolerated, total treatment time 13 minutes. Ryley Naranjo, HAND CANDLE MOLDER
--- NOTE | 2019-09-04 12:48 | NUR ---
OT NOTE Pt was seen this P.M. 1:1 for 17 minute OT session. Upon arrival pt was sitting upright in the recliner. Pt identified by name and and had complaints of 7/10 R hip pain. Sit to stand completed from chair level with Malik X 2. Standing pivot was then completed from the recliner to the EOB with Malik and use of w/w with verbal prompts for proper sequencing with the walker. Pt then transferred sit to supine with Malik for assist with BLE and was repositioned with maxa X 2. There he was left with call light in hand, tray table in place, and bed alarm activated for safety. Continue with rec D/C plan to SNF. JUNIOR Burns/Seema
--- NOTE | 2019-09-04 14:25 | NUR ---
Martha from [facility] stated patient was denied snf stay. Insurance is stating assistant store director says patient is not medically stable enough to leave the hospital. Creatinine levels, tachcardic, and refusing cardiology. Reference number is [id number]. Phone number is [phone] opt 2 must call by 4:30 pm today
[2019-09-04 16:00] VITALS: BP 135/82
[2019-09-04 20:00] VITALS: BP 141/78
[2019-09-05] VITALS: BP 150/89
--- NOTE | 2019-09-05 03:39 | NUR ---
PATIENT MEDICATED WITH PERCOCET FOR 8/10 HIP PAIN. WILL MONITOR
--- NOTE | 2019-09-05 04:39 | NUR ---
PERCOCET APPEARS EFFECTIVE FOR PAIN. RESTING QUIETLY IN BED, EYES CLOSED. CALL LIGHT WITHI NREACH
[2019-09-05 06:17] LABS: BUN 29 mg/dl (7-24); CHLORIDE 109 mmol/L (98-107); CREATININE 1.39 mg/dL (0.70-1.30); POTASSIUM 3.6 mmol/L (3.5-5.1); SODIUM 138 mmol/L (136-145)
[2019-09-05 06:20] LABS: VANCOMYCIN RANDOM 15.2 ug/mL
--- NOTE | 2019-09-05 06:54 | NUR ---
Discussed discharge planning with Dr. Castro. Patient was denied [facility] due to not being medically stable. Dr. Castro called [facility] to [facility] and insurance will not approve SNF but will review on Sunday after looking at his PT notes. buyer planner notified.
[2019-09-05 08:00] VITALS: BP 161/89
--- NOTE | 2019-09-05 08:03 | NUR ---
PERCOCET GIVEN AT THIS TIME OF C/O RIGHT HIP PAIN OF 04/22. WILL CONT TO MONITOR. CALL LIGHT IN REACH.
--- NOTE | 2019-09-05 08:04 | NUR ---
COMPUTER DISCONNECTS FROM WIFI IN ROOM. ALL CORRECT MEDS GIVEN BUT NOT SCANNED.
--- NOTE | 2019-09-05 09:03 | NUR ---
PERCOCET EFF. WILL CONT TO MONITOR. CALL LIGHT IN REACH.
--- NOTE | 2019-09-05 10:18 | NUR ---
OT NOTE PATIENT SEEN OT 25 MINUTES. PATIENT IDENTIFIED BY NAME AND DATE OF . PATIENT IN BED UPON ARRIVAL.COMPLETED SUPINE TO SIT EOB MOD A WITH COMPLAIN 6/10 PAIN RIGHT LEG WITH MOVEMENT AND 2/10 PAIN R LEG AT REST. PATIENT COMPLAINED FEELING LIGHT HEADED TRANSITIONING FROM SUPINE TO SIT AND SIT TO STAND WITH DISSIPATION OF FEELING LIGHT HEADED WITH SEATED REST BREAK WITH NURSING NOTIFIED. COMPLETED STAND PIVOT TRANSFER BED TO RECLINER USE FWW SUPPORT MIN A X 2 . COMPLETED SIT TO STAND FROM RECLINER MOD A X 2. PATIENT DEMONSTRATED STAND TOLERANCE APPROX 1 MIN THIS DATE USE FWW SUPPORT. COMPLETED UB DRESSING TASK MOD A DOWN GOWN AND DEPENDENT TO DON SOCK SECONDARY UNABLE TO REACH FEET. PATIENT COMPLETED GROOMING SITTING IN RECLINER SBA AFTER PATIÑO WITH MIN VERBAL CUES SEQUENCING TASK. PATIENT SEATED IN RECLINER WITH CHAIR ALARM INTACT AND CALL LIGHT WITHIIN REACH AND NO FURTHER NEEDS VERBALIZED. CONTINUE TOWARDS PLAN OF CARE. JEFF PACHECO/Seema
--- NOTE | 2019-09-05 10:33 | NUR ---
PHYSICAL THERAPY TREATMENT TIME: 9:19 AM - 9:46 AM 27 MINUTES TOTAL Patient presented to therapy in supine with head of bed elevated and report of mild dizziness. Patient gives informed consent for treatment. Patient was identified by name and on wristband. Patient transferred supine to sitting at EOB with MOD A X 2. Patient sat on EOB with SBA. Patient reports mild dizziness in sitTting at EOB. Patient transferred sit ot stand from EOB with
--- NOTE | 2019-09-05 11:50 | NUR ---
PHYSICAL THERAPY TREATMENT TIME: 11:05 AM - 11:15 PM 10 MINUTES 2nd TREATMENT THIS MORNING. Patient presented to therapy in sitting position in bedsid chair with complaint of being stiff and wanting to go back to bed. Patient gives informed consent for treatment. Patient was identified by name and on wristband. Patient gives informed consent for treatment. Patient performed sit to stand from bedside chair with MOD A X 2. Patient transferred SPT on L LE to sitting on EOB with MIN A X 2. Patient transferred to supine in bed with MOD A X 2. Patient was left in supine in bed with head of bed elevated, call light within reach and bed alarm activated. 10 MINUTES TREATMENT TIME. PACO STEINBERG SAW HANDLE ASSEMBLER
--- NOTE | 2019-09-05 11:53 | NUR ---
PATY received call from patients daughter stating she now wants the patient to go to [facility]. She stated that she just left [facility] and that a person from the facility is coming down to do an onsite with the patient. PATY reached out to [facility] to get a better understanding of what is going on. Will await to hear back from her. Police Communications Operator Cherry has been notified. -PATY Matthew
[2019-09-05 12:00] VITALS: BP 137/81
--- NOTE | 2019-09-05 12:19 | NUR ---
OT NOTE PATIENT SEEN OT THIS DATE SECOND AM TREAT 12 MINUTES. PATIENT SEATED IN RECLINER AND REQUESTING TO LIE BACK DOWN. PATIENT COMPLETED STAND PIVOT TRANSFER RECLINER TO BED MOD A X 2 USE FWW WITH INCREASE TIME AND SHUFFLE GAIT NOTED. COMPLETED SIT TO SUPINE BED MOD A. PATIIENT IN BED WITH CALL LIGHT REACH AND BED ALARM AND INTACT. CONTINUE TOWARDS PLAN OF CARE. JEFF PACHECO/Seema
--- NOTE | 2019-09-05 13:52 | NUR ---
SHREDDER OPERATOR spoke with Mary Solomon. Patient has been onsited and is accepted to the facility. He can go when medically stable. Director Ambulatory is aware. -PATY Matthew
--- NOTE | 2019-09-05 14:03 | NUR ---
Notified Dr. Castro patient is going to be LTC at [facility] and can be discharged when medically stable.
--- NOTE | 2019-09-05 15:34 | NUR ---
PHYSICAL THERAPY CO-SIGN I approve of the Physical Therapy notes written above. Renetta Allen PT
[2019-09-05 16:00] VITALS: BP 142/74
--- NOTE | 2019-09-05 16:25 | NUR ---
PAIN IN RT HIP ON ASSESSMENT - PERCOCET GIVEN - MEDS & LAB RESULTS REVIEWED WITH BOBBI AT BEDSIDE
--- NOTE | 2019-09-05 17:30 | NUR ---
BETTER PER PT - UNABLE TO RATE AT THIS TIME
[2019-09-05 20:00] VITALS: BP 128/76; BP 145/88
--- NOTE | 2019-09-05 20:10 | NUR ---
PATIENT MEDICATED WITH PERCOCET FOR C/O HIP PAIN 02/19. WILL MONITOR
--- NOTE | 2019-09-05 21:10 | NUR ---
PERCOCET APPEARS EFFECTIVE. PATIENT RESTING QUIETLY, EYES CLOSED. NO DISTRESS NOTED. CALL LIGHT WITHIN REACH
[2019-09-06] VITALS: BP 139/89
[2019-09-06 08:00] VITALS: BP 153/88
[2019-09-06 12:00] VITALS: BP 158/76
[2019-09-06 16:00] VITALS: BP 136/82
[2019-09-06 20:00] VITALS: BP 129/76
--- NOTE | 2019-09-06 21:01 | NUR ---
PATIENT MEDICATED WITH PERCOCET FOR C/O HIP PAIN 01/20. WILL MONITOR
--- NOTE | 2019-09-06 22:01 | NUR ---
PERCOCET APPEARS EFFECTIVE. PATIENT RESTING IN BED, EYES CLOSED. CALL LIGHT WITHIN REACH
[2019-09-07] VITALS: BP 136/74; BP 145/84
--- NOTE | 2019-09-07 05:33 | NUR ---
PATIENT MEDICATED WITH PERCOCET FOR C/O 02/19 HIP PAIN. WILL MONITOR
[2019-09-07 06:28] LABS: HEMATOCRIT 26.2 % (42.0-52.0); HEMOGLOBIN 8.3 g/dl (14.0-18.0); MEAN CELL VOLUME 88.5 fl (80.0-94.0); MEAN CORPUSCULAR HGB CONC 31.7 g/dl (33.0-37.0); MEAN PLATELET VOLUME 8.8 fl (9.6-12.3); PLATELET COUNT AUTOMATED 217 10*3/uL (130-400); RED BLOOD COUNT 2.96 10*6/uL (4.50-5.90); RED CELL DISTRI WIDTH 16.3 % (0-14.5); WHITE BLOOD COUNT 4.4 10*3/uL (4.8-10.8)
[2019-09-07 06:41] LABS: BUN 26 mg/dl (7-24); CHLORIDE 110 mmol/L (98-107); CREATININE 1.31 mg/dL (0.70-1.30); POTASSIUM 3.6 mmol/L (3.5-5.1); SODIUM 138 mmol/L (136-145)
[2019-09-07 08:00] VITALS: BP 150/88
[2019-09-07 08:08] LABS: PLATELET SUFFICIENCY NORMAL (NORMAL); ROULEAUX MODERATE; TOTAL CELLS COUNTED 100 #CELLS
--- NOTE | 2019-09-07 09:00 | NUR ---
PT RESTING IN BED. NO DISTRESS NOTED. WILL MONITOR
--- NOTE | 2019-09-07 11:00 | NUR ---
PT REQUESTED AND GIVEN PERCOCET FOR C/O RIGHT LE PAIN PT RATES PAIN 7/10 WILL MONITOR
[2019-09-07 12:00] VITALS: BP 147/80
--- NOTE | 2019-09-07 13:00 | NUR ---
PERCOCET HELPED PER PT WILL MONITOR
--- NOTE | 2019-09-07 15:50 | NUR ---
PT REQUESTED AND GIVEN PERCOCET FOR C/O RIGHT LE PAIN . PT RATES PAIN 8/10 WILL MONITOR
[2019-09-07 16:00] VITALS: BP 140/75
[2019-09-07 20:00] VITALS: BP 141/79; BP 144/76
[2019-09-08] VITALS: BP 145/84
--- NOTE | 2019-09-08 00:51 | NUR ---
PRN PERCOCET GIVEN FOR PT COMPLAINTS OF 6/10 RIGHT HIP PAIN. CALL LIGHT LARISA KERR, WILL MONITOR
--- NOTE | 2019-09-08 02:56 | NUR ---
PATIENT SLEEPING, PERCOCET APPEARS EFFECTIVE
--- NOTE | 2019-09-08 05:28 | NUR ---
24 HR chart check completed.
[2019-09-08 06:24] LABS: HEMATOCRIT 25.9 % (42.0-52.0); HEMOGLOBIN 8.4 g/dl (14.0-18.0); MEAN CELL VOLUME 87.8 fl (80.0-94.0); MEAN CORPUSCULAR HGB 28.5 pg (27.0-31.0); MEAN CORPUSCULAR HGB CONC 32.4 g/dl (33.0-37.0); MEAN PLATELET VOLUME 9.5 fl (9.6-12.3); PLATELET COUNT AUTOMATED 222 10*3/uL (130-400); RED BLOOD COUNT 2.95 10*6/uL (4.50-5.90); RED CELL DISTRI WIDTH 16.1 % (0-14.5); WHITE BLOOD COUNT 4.7 10*3/uL (4.8-10.8)
[2019-09-08 06:31] LABS: BUN 26 mg/dl (7-24); CHLORIDE 110 mmol/L (98-107); CREATININE 1.33 mg/dL (0.70-1.30); POTASSIUM 4.3 mmol/L (3.5-5.1); SODIUM 140 mmol/L (136-145)
--- NOTE | 2019-09-08 06:50 | NUR ---
ATTEMPTED TO CONTACT DR. PARKER RELATED TO PATIENT BEING BLADDER SCANNED FOR GREATER THAN 700. PATIENT STATES HE DOES NOT FEEL HE HAS TO VOID. [facility] CATHETER REMOVED AT 1900 09/07/19. NO ANSWER. WILL RETRY
[2019-09-08 06:56] LABS: BASOPHILS 1 % (0-1); OVALOCYTES FEW; PLATELET SUFFICIENCY NORMAL (NORMAL); ROULEAUX SLIGHT; SCHISTOCYTES FEW; TOTAL CELLS COUNTED 100 #CELLS
--- NOTE | 2019-09-08 07:00 | NUR ---
ATTEMPTED TO CONTACT DR. PARKER AGAIN AT THIS TIME REGARDING PATIENTS BLADDER SCAN RESULTS. NO ANSWER
--- NOTE | 2019-09-08 07:39 | NUR ---
DR. PARKER NOTIFIED OF PATIENT NOT URINATING ALL NIGHT FROM 1930 AND WHEN BLADDER SCANNED HE HAS 700-800CC OF URINE. ORDER RECIEVED TO REPLACE THE [facility] CATHETER
[2019-09-08 08:00] VITALS: BP 144/85
--- NOTE | 2019-09-08 08:00 | NUR ---
PT RESTING IN BED. [facility] PLACED PER DR. ANTUNEZ. STERILE TECHNIQUE PERFORMED. PT TOLERATED WELL. PT HAD 60OCC CRISTOBAL COLOR URINE. CALL LIGHT IN REACH.
--- NOTE | 2019-09-08 08:15 | NUR ---
PT ASSISTED UP TO RECLINER CHAIR WITH THERAPY. RESP-EASY AND REGULAR. NO C/O AT THIS TIME. CALL LIGHT IN REACH. SEE SHIFT ASSESSMENT.
--- NOTE | 2019-09-08 08:20 | NUR ---
PHYSICAL THERAPY Patient seen this am 1:1 for therapy visit and was just awakening supine in bed upon therapist arrival. Patient identified by name / and reports increased generalized, global pain, but was unable to rate on 0-10 scale. Patient also presented with increased B LE stiffness and transfered supine to sit EOB with MOD A x 2. Patient stated he was upset that his Doctor has not kept him informed of his medical status and needed several v/c's to focus on task this session. Patient performed several sit to stand transfers, MIN A x 2 with use of wh walker standing support. Patient demonstrated initial retrograde posture, needing verbal / tactile cue to correct. Patient ambulated 10'x 1, wh walker, MIN A, demonstrating increased difficulty with weight shifting prior to LE foot advance, decreased stride and POOR walker safety / navigaiton. Patient also fatigues quickly and returned to bediside chair. Patient remained in chair with call light, tray table, cell phone and body alarm. Will continue per POC as tolerated, total treatment time 16 minutes. Ryley Naranjo, PHOTOGRAPHIC PROCESS WORKER
--- NOTE | 2019-09-08 08:25 | NUR ---
OT NOTE Pt was seen this A.M. 1:1 for 20 minute OT session. Upon arrival pt was supine in bed. Pt identified by name and and had complaints of global pain which he did not rate on 0-10 pain scale. Pt transferred supine to sit EOB with modA X 2. While sitting EOB challenged pt's dynamic sitting balance needed for increased I and enhanced safety. While weight shifting, crossing midline, and reaching over all planes pt was able to maintain F sitting balance throughout. Pt completed multiple sit to stand transfers from bed level with Malik X 2 and use of w/w for UE support. Challenged pt's static standing tolerance needed for increased I in self care tasks and functional transfers, Pt was able to tolerate aprox 3 minutes at a time before sitting due to fatigue and pain. Functional mobility was completed to the bathroom with CGA and use of w/w with verbal prompts for encouragement due to being guarded with pain. Pt was unable to continue into the bathroom due to fatigue and pain. Pt was left sitting upright in the recliner with call light in hand, tray table in place, and body alarm activated for safety. Continue with rec D/C plan to SNF. JUNIOR Burns/Seema
[2019-09-08 08:30] VITALS: BP 152/80
--- NOTE | 2019-09-08 09:38 | NUR ---
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 Patient is ok to go when medically stable for discharge.
[2019-09-08 12:00] VITALS: BP 130/67
--- NOTE | 2019-09-08 12:52 | NUR ---
PT C/O RIGHT HIP PAIN, RATES PAIN 5 OR 6 ON PAIN SCALE 0-10. MEDICATED WITH PERCOCET PO PER PRN ORDER, SEE EMAR. CALL LIGGINGER IN REACH.
--- NOTE | 2019-09-08 13:15 | NUR ---
Faxed clinical updates and therapy notes to [facility] mackey for review. patient is ok to go when medically stable for discharge.
--- NOTE | 2019-09-08 13:50 | NUR ---
PT RESTING IN BED. STATES PAIN MEDICATION HELPS. CALL LIGHT IN REACH.
[2019-09-08] MEDS ORDERED: CEFTRIAXON1 GM/50 ML IV (15:36)
[2019-09-08 16:00] VITALS: BP 138/81
--- NOTE | 2019-09-08 16:00 | NUR ---
RESTING IN BED. RESP-EASY AND REGULAR. NO C/O AT THIS TIME. CALL LIGHT IN REACH. SEE SHIFT ASSESSMENT.
--- NOTE | 2019-09-08 16:15 | NUR ---
RESTING IN BED EATING DINNER. NO C/O AT THIS TIME. CALL LIGHT IN REACH.
--- NOTE | 2019-09-08 16:40 | NUR ---
CALLED DR. COTTON PER HIM PT IS TO GO TO [facility] WITH [facility]. HE IS TO HAVE UROLOGY FOLLOW UP.
--- NOTE | 2019-09-08 16:45 | NUR ---
CALLED DAUGHTER AWARE PT IS GOING TO [facility].
--- NOTE | 2019-09-08 17:00 | NUR ---
CALLED [facility] IN [place] TO GIVE REPORT ON PT BEING DISCHARGED, PER THEM THERE IS A PROBLEM WITH INSURANCE AND NOT ABLE TO TAKE PT TODAY THEY SAID THE [facility] CLOSED [facility] 430 AND WASN'T ABLE TO GET A HOLD OF THEM.
--- NOTE | 2019-09-08 17:02 | NUR ---
CALLED DAUGHTER ERWIN AND MADE AWARE OF INSURANCE ISSUE PER [facility]. PT WILL GO TOMORROW WHEN ITS RESOLVED.
--- NOTE | 2019-09-08 18:00 | NUR ---
TOLERATED ROUTINE MED WITH NO PROBLEM. NO C/O AT THIS TIME. REPOSITIONED IN BED FOR COMFORT. HEELS ELEVATED UP ON PILLOW. CALL LIGHT IN REACH. BED ALARM ON.
[2019-09-08 20:00] VITALS: BP 143/84
--- NOTE | 2019-09-08 22:56 | NUR ---
PRN PERCOCET GIVEN FOR PT COMPLAINTS OF RIGHT HIP PAIN RATING IT 6/10. CALL LIGHT WITHIN REACH, WILL MONITOR
--- NOTE | 2019-09-08 23:19 | NUR ---
PATIENT NOTED WITH SOME EXCORIATION BUT BLANCHABLE AREA TO THE GROIN. [facility]
[2019-09-09] VITALS: BP 152/88
--- NOTE | 2019-09-09 00:15 | NUR ---
PRN PERCOCET APPEARS EFFECTIVE, PT SLEEPING
--- NOTE | 2019-09-09 02:24 | NUR ---
PATIENT SLEEPING. NO DISTRESS NOTED.
--- NOTE | 2019-09-09 03:05 | NUR ---
24 HR chart check completed.
--- NOTE | 2019-09-09 05:04 | NUR ---
ANA PARKS [id number] Please refer to the physician's history and physical for past medical history, comorbid conditions, and allergies. Diagnosis: BILATERAL LOWER EXTREMITY EDEMA,RENAL FAILURE Nelson Score: 12,HIGH RISK WOUND DESCRIPTIONS: Wound Number: 1 Location of the wound: Right medial buttocks. Scar tissue noted at time of assessment. No open areas noted at time of assessment. No draiange at time of assessment. Wound Number: 2 Location of the wound: Right buttocks lateral Type of wound: Stage 3 Thickness: Full Size: 0.6cm X 0.4cm X 0.1cm Tunneling: none Undermining: none Sinus Tract: none Presence of Exudate: Serous Amount: Light Color: Yellow, Red Odor: None Periwound Skin Appearance: Erythema Wound edges: approximated Pain (associated with wound): none at time of assessment Wound Number:3 right hip scabbed areas remain intact at time of assessment. No drainage noted at time of assessment. Heel red and blanchable at time of assessment. No open areas noted at time of assessment. No drainage noted at time of assessment. Surface the patient is resting on: Proform SKIN PREVENTION RECOMMENDATION: 1. Pressure redistribution support surface as appropriate 2. Elevate heels 3. Remove boots/TEDS every shift and reapply 4. Head of bed 30 degrees as tolerated 5. Assess nutrition and hydration 6. Manage moisture 7. Avoid the use of containment devices while in bed 8. Use absorptive products on surfaces limit layers of linens on bed 9. Turn and reposition every 1-2 hours in bed and every 1 hour in chair as tolerated 10. Weight shifts every 15 minutes while up in chair 11. Offloading with pillows or device to keep heels elevated off bed 12. Monitor skin at least every shift 13. Inspect under medical devices twice a day WOUND TREATMENT RECOMMENDATIONS: Continue wheelchair cushion when oob. Clarify skin tear guidelines: Cleanse right lateral buttocks with nss and apply sureprep around the wound therahoney to wound bed and cover with optifoam gentle. Heel raiser pro boots to bilateral feet while in bed
[2019-09-09 08:00] VITALS: BP 143/80
--- NOTE | 2019-09-09 08:45 | NUR ---
PT RESTING IN BED. TOLERATED ROUTINE MED WITH NO PROBLEM. NO C/O AT THIS TIME. REPOSITIONED IN BED. CALL LIGHT IN REACH. SEE SHIFT ASSESSMENT.
--- NOTE | 2019-09-09 08:51 | NUR ---
left message with Dr. Castro regarding wound care recommendations. Left wound care cell phone number for call back number.
--- NOTE | 2019-09-09 10:48 | NUR ---
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 She stated she is sending in the request now and it should be approved shortly. She will call back when she has approval.
--- NOTE | 2019-09-09 11:00 | NUR ---
RESTING IN BED EATING BREAKFAST. NO C/O AT THIS TIME. CALL LIGHT IN REACH. BED ALARM ON.
--- NOTE | 2019-09-09 11:22 | NUR ---
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 He can go there when medically stable for discharge.
--- NOTE | 2019-09-09 11:24 | NUR ---
Discussed discharge planning with Dr. Liu. Patient is medically stable for discharge. network planner notified.
--- NOTE | 2019-09-09 11:28 | NUR ---
Patient is discharged to [facility] via [place] at 12:30. NH, nursing, kitchen stewardess notified.
--- NOTE | 2019-09-09 12:13 | NUR ---
SPOKE WITH KARYN AT [facility] IN [facility]. [facility] IS HERE TO TRANSFER PT TO [place] VIA [facility] Discharge instructions reviewed with patient/family. Patient receptive and verbalizes understanding. Follow-up care arranged. Written instructions given to patient/family. PT GOES WITH PICC LINE TO [facility] AND [facility]. MARLENE ISAAC R
--- NOTE | 2019-09-09 16:15 | NUR ---
OCCUPATIONAL THERAPY CO-SIGN I approve of the Occupational Therapy notes written above. JUANITA FIELD, OTR/L
--- NOTE | 2019-09-10 07:55 | NUR ---
PHYSICAL THERAPY CO-SIGN I approve of the Physical Therapy notes written above. Renetta Allen PT
== END 2019-09-09 12:13 | disposition other institution (70) | DRG 917 ==
LOC: ED 13:27 → EDHOLD 16:22 → 4E 16:22 → 5E 17:15 → 4E 17:26
PROVIDERS: Internal Medicine Nephrology; Nurse Practitioner Family; ADMIT Internal Medicine
DX: T36.8X4A Poisoning by other systemic antibiotics, undetermined, initial encounter (principal); J69.0 Pneumonitis due to inhalation of food and vomit; N17.0 Acute kidney failure with tubular necrosis; E46 Unspecified protein-calorie malnutrition; N50.89 Other specified disorders of the male genital organs; E87.5 Hyperkalemia; E87.8 Other disorders of electrolyte and fluid balance, not elsewhere classified; E83.51 Hypocalcemia; E88.09 Other disorders of plasma-protein metabolism, not elsewhere classified; R91.1 Solitary pulmonary nodule; J44.9 Chronic obstructive pulmonary disease, unspecified; K21.9 Gastro-esophageal reflux disease without esophagitis; F17.210 Nicotine dependence, cigarettes, uncomplicated; T79.6XXA Traumatic ischemia of muscle, initial encounter; X58.XXXA Exposure to other specified factors, initial encounter; E87.6 Hypokalemia; N18.9 Chronic kidney disease, unspecified; R33.9 Retention of urine, unspecified; S72.001S Fracture of unspecified part of neck of right femur, sequela; E83.39 Other disorders of phosphorus metabolism; Z86.14 Personal history of Methicillin resistant Staphylococcus aureus infection; Z79.82 Long term (current) use of aspirin; Y92.89 Other specified places as the place of occurrence of the external cause; Z79.899 Other long term (current) drug therapy; Z68.31 Body mass index [BMI] 31.0-31.9, adult